=== PATIENT | male | born 1940 | race Caucasian/White ===

== ENCOUNTER 2017-12-23 14:16 | Inpatient (IN) | payer MEDICARE, OTHER ==
[2017-12-23] MEDS: HYDROCODONE/APAP (5/325) TAB PO (17:04)
[2017-12-23] MEDS: morphine 10 MG INJ IV (19:21)
[2017-12-23] MEDS ORDERED: ACETAMINOPHEN 325 MG TAB PO ×2 (20:00→21:00)
[2017-12-23 20:13] LABS: ADD MAN DIFF? NO
[2017-12-23 20:20] LABS: WHITE BLOOD COUNT 7.3 10^3/ul (4.8-10.8)
[2017-12-23 20:20] LABS: BASOPHIL # 0.1 10^3/ul (0.0-0.1); BASOPHILS % 0.7 % (0.0-2.0); EOSINOPHILS # 0.1 10^3/ul (0.0-0.5); HEMATOCRIT 38.9 % (42.0-52.0); HEMOGLOBIN 13.5 g/dl (14.0-18.0); LYMPHOCYTES # 0.9 10^3/ul (0.8-2.9); LYMPHOCYTES % 12.8 % (15.0-51.0); MEAN CORPUSCULAR HEMOGLOBIN 32.1 pg (29.0-33.0); MEAN CORPUSCULAR HGB CONC 34.7 g/dl (32.0-37.0); MEAN CORPUSCULAR VOLUME 92.6 fl (82.0-101.0); MEAN PLATELET VOLUME 9.9 fl (7.4-10.4); MONOCYTE # 0.6 10^3/ul (0.3-0.9); MONOCYTES % 8.8 % (0.0-11.0); NEUTROPHIL # 5.6 10^3/ul (1.6-7.5); NEUTROPHILS % 76.2 % (39.0-77.0); PLATELET COUNT 228 10^3/UL (140-415)
[2017-12-23 20:37] LABS: ANION GAP 22 (8-16); BLOOD UREA NITROGEN 23 mg/dl (7-20); CALCIUM 8.9 mg/dl (8.4-10.2); CARBON DIOXIDE 19 mmol/L (21-31); CHLORIDE 105 mmol/L (97-110); CREATININE 0.94 mg/dl (0.61-1.24); GLUCOSE 186 mg/dl (70-220); POTASSIUM 4.1 mmol/L (3.5-5.1); SODIUM 142 mmol/L (135-144)
[2017-12-23] MEDS ORDERED: NACL 0.9% 3 ML SYG IV (21:00)
[2017-12-23] MEDS: BISACODYL (EC) 5 MG TAB PO (22:47)
[2017-12-23] MEDS: DOCUSATE SODIUM 100 MG CAP PO (22:47)
[2017-12-23] MEDS: HYDROmorphONE 0.5 MG/0.5 ML SYG IV (22:47)
[2017-12-24] MEDS: HYDROmorphONE 0.5 MG/0.5 ML SYG IV ×6 (02:15→22:15)
[2017-12-24] MEDS ORDERED: HYDROmorphONE 0.5 MG/0.5 ML SYG IV (02:30)
[2017-12-24] MEDS: HYDROmorphONE 0.5 MG/0.5 ML SYG IM (03:32)
[2017-12-24] MEDS ORDERED: GLUCOSE GEL 15 GRAM TUBE PO ×2 (05:05)
[2017-12-24] MEDS ORDERED: GLUCAGON 1 MG INJ IM (05:05)
[2017-12-24] MEDS ORDERED: DEXTROSE 50% 50 ML SYRINGE IV ×2 (05:05)
[2017-12-24] MEDS ORDERED: GLUCOSE GEL 15 GRAM TUBE BUCCAL (05:05)
[2017-12-24 05:26] LABS: ADD MAN DIFF? NO
[2017-12-24 05:35] LABS: BASOPHIL # 0.1 10^3/ul (0.0-0.1); BASOPHILS % 0.7 % (0.0-2.0); EOSINOPHILS # 0.2 10^3/ul (0.0-0.5); EOSINOPHILS % 2.8 % (0.0-7.0); HEMATOCRIT 39.2 % (42.0-52.0); HEMOGLOBIN 13.7 g/dl (14.0-18.0); LYMPHOCYTES # 1.2 10^3/ul (0.8-2.9); LYMPHOCYTES % 17.9 % (15.0-51.0); MEAN CORPUSCULAR HEMOGLOBIN 32.4 pg (29.0-33.0); MEAN CORPUSCULAR HGB CONC 34.9 g/dl (32.0-37.0); MEAN CORPUSCULAR VOLUME 92.7 fl (82.0-101.0); MEAN PLATELET VOLUME 9.3 fl (7.4-10.4); MONOCYTE # 0.8 10^3/ul (0.3-0.9); NEUTROPHIL # 4.4 10^3/ul (1.6-7.5); NEUTROPHILS % 65.7 % (39.0-77.0); PLATELET COUNT 208 10^3/UL (140-415); RED BLOOD COUNT 4.23 10^6/ul (4.70-6.10); RED CELL DISTRIBUTION WIDTH 12.8 % (11.5-14.5)
[2017-12-24 05:35] LABS: WHITE BLOOD COUNT 6.8 10^3/ul (4.8-10.8)
[2017-12-24 06:07] LABS: ALANINE AMINOTRANSFERASE 23 IU/L (13-69); ALBUMIN/GLOBULIN RATIO 1.42; ALKALINE PHOSPHATASE 74 IU/L (42-121); ANION GAP 16 (8-16); ASPARTATE AMINO TRANSFERASE 18 IU/L (15-46); BILIRUBIN,INDIRECT 0.3 mg/dl (0-1.1); BILIRUBIN,TOTAL 0.3 mg/dl (0.2-1.3); BLOOD UREA NITROGEN 23 mg/dl (7-20); CALCIUM 9.3 mg/dl (8.4-10.2); CARBON DIOXIDE 24 mmol/L (21-31); CHLORIDE 109 mmol/L (97-110); CHOL/HDL RATIO 4.4 RATIO; CHOLESTEROL 183 mg/dl (100-200); CREATININE 0.89 mg/dl (0.61-1.24); GLUCOSE 268 mg/dl (70-220); HDL CHOLESTEROL 41 mg/dl (31-75); LDL CHOLESTEROL,CALCULATED 63 mg/dl; MAGNESIUM 1.8 mg/dl (1.7-2.5); POTASSIUM 4.3 mmol/L (3.5-5.1); SODIUM 145 mmol/L (135-144); TOTAL PROTEIN 6.8 g/dl (6.1-8.1); TRIGLYCERIDES 395 mg/dl (0-149)
[2017-12-24 06:07] LABS: HEMOGLOBIN A1C 7.3 % (0-5.9)
[2017-12-24] MEDS: INSULIN ASPART [NOVOLOG] 3 ML PEN SC ×4 (07:50→20:41)
[2017-12-24] MEDS: ONDANSETRON 4 MG INJ IV (08:36)
[2017-12-24] MEDS: LIDOCAINE 5% PATCH TD (08:42)
[2017-12-24] MEDS: LISINOPRIL 20 MG TAB PO (08:44)
[2017-12-24] MEDS: DOCUSATE SODIUM 100 MG CAP PO ×2 (08:44→20:39)
[2017-12-24] MEDS: BISACODYL (EC) 5 MG TAB PO (08:45)
[2017-12-24] MEDS: INSULIN GLARGINE [LANtus] 3 ML PEN SC (10:49)
[2017-12-24] MEDS: HYDROCODONE/APAP (10/325) TAB PO (11:35)
[2017-12-24] MEDS: TAMSULOSIN (SR) 0.4 MG CAP PO (20:39)
[2017-12-24] MEDS: ATORVASTATIN 40 MG TAB PO (20:39)
[2017-12-25] MEDS: HYDROCODONE/APAP (10/325) TAB PO ×2 (00:06→20:43)
[2017-12-25] MEDS: HYDROmorphONE 0.5 MG/0.5 ML SYG IV ×6 (01:23→23:00)
[2017-12-25] MEDS: ACCU-CHEK XX ×2 (01:49→21:35)
[2017-12-25] MEDS: ONDANSETRON 4 MG TAB PO (07:45)
[2017-12-25] MEDS: DOCUSATE SODIUM 100 MG CAP PO ×2 (08:02→20:45)
[2017-12-25] MEDS: BISACODYL (EC) 5 MG TAB PO (08:02)
[2017-12-25] MEDS: LISINOPRIL 20 MG TAB PO (08:06)
[2017-12-25] MEDS: LIDOCAINE 5% PATCH TD (08:07)
[2017-12-25] MEDS: FISH OIL 1,000 MG CAP PO ×2 (09:07→20:46)
[2017-12-25] MEDS: metFORMIN 500 MG TAB PO ×2 (09:08→18:44)
[2017-12-25] MEDS: INSULIN ASPART [NOVOLOG] 3 ML PEN SC ×7 (09:10→21:00)
[2017-12-25] MEDS: INSULIN GLARGINE [LANtus] 3 ML PEN SC (09:11)
[2017-12-25] MEDS: DIPHENHYDRAMINE 25 MG CAP PO ×3 (10:38→20:45)
[2017-12-25] MEDS: TAMSULOSIN (SR) 0.4 MG CAP PO (20:45)
[2017-12-25] MEDS: ATORVASTATIN 40 MG TAB PO (20:45)
[2017-12-26] MEDS: HYDROCODONE/APAP (10/325) TAB PO ×2 (01:07→20:48)
[2017-12-26] MEDS: DIPHENHYDRAMINE 25 MG CAP PO ×2 (01:07→20:48)
[2017-12-26] MEDS: HYDROmorphONE 0.5 MG/0.5 ML SYG IV ×5 (02:46→23:10)
[2017-12-26 05:46] LABS: ADD MAN DIFF? NO
[2017-12-26 05:50] LABS: BASOPHILS % 0.5 % (0.0-2.0); EOSINOPHILS # 0.1 10^3/ul (0.0-0.5); EOSINOPHILS % 1.5 % (0.0-7.0); HEMATOCRIT 37.4 % (42.0-52.0); HEMOGLOBIN 12.8 g/dl (14.0-18.0); LYMPHOCYTES # 1.4 10^3/ul (0.8-2.9); LYMPHOCYTES % 18.6 % (15.0-51.0); MEAN CORPUSCULAR HEMOGLOBIN 32.2 pg (29.0-33.0); MEAN CORPUSCULAR HGB CONC 34.2 g/dl (32.0-37.0); MEAN CORPUSCULAR VOLUME 94.2 fl (82.0-101.0); MEAN PLATELET VOLUME 9.4 fl (7.4-10.4); MONOCYTE # 1.1 10^3/ul (0.3-0.9); MONOCYTES % 13.9 % (0.0-11.0); NEUTROPHIL # 5.1 10^3/ul (1.6-7.5); NEUTROPHILS % 65.1 % (39.0-77.0); PLATELET COUNT 242 10^3/UL (140-415); RED BLOOD COUNT 3.97 10^6/ul (4.70-6.10); RED CELL DISTRIBUTION WIDTH 13.4 % (11.5-14.5)
[2017-12-26 05:50] LABS: WHITE BLOOD COUNT 7.8 10^3/ul (4.8-10.8)
[2017-12-26 06:03] LABS: INR 1.04; PROTIME 13.7 Sec (11.9-14.9); PT RATIO 1.1
[2017-12-26 06:04] LABS: PARTIAL THROMBOPLASTIN TIME 26.5 Sec (25.0-35.0)
[2017-12-26 06:33] LABS: ALANINE AMINOTRANSFERASE 30 IU/L (13-69); ALBUMIN 3.8 g/dl (3.3-4.9); ALKALINE PHOSPHATASE 67 IU/L (42-121); ANION GAP 15 (8-16); ASPARTATE AMINO TRANSFERASE 25 IU/L (15-46); BILIRUBIN,INDIRECT 0.4 mg/dl (0-1.1); BILIRUBIN,TOTAL 0.4 mg/dl (0.2-1.3); BLOOD UREA NITROGEN 42 mg/dl (7-20); CALCIUM 9.3 mg/dl (8.4-10.2); CARBON DIOXIDE 26 mmol/L (21-31); CHLORIDE 105 mmol/L (97-110); CREATININE 1.57 mg/dl (0.61-1.24); GLUCOSE 143 mg/dl (70-220); POTASSIUM 3.7 mmol/L (3.5-5.1); SODIUM 142 mmol/L (135-144); TOTAL PROTEIN 6.5 g/dl (6.1-8.1)
[2017-12-26] MEDS: DOCUSATE SODIUM 100 MG CAP PO ×2 (08:14→20:39)
[2017-12-26] MEDS: FISH OIL 1,000 MG CAP PO ×2 (08:14→20:39)
[2017-12-26] MEDS: BISACODYL (EC) 5 MG TAB PO (08:14)
[2017-12-26] MEDS: LISINOPRIL 20 MG TAB PO (08:15)
[2017-12-26] MEDS: LIDOCAINE 5% PATCH TD (08:16)
[2017-12-26] MEDS: INSULIN GLARGINE [LANtus] 3 ML PEN SC (08:51)
[2017-12-26] MEDS: INSULIN ASPART [NOVOLOG] 3 ML PEN SC ×8 (08:52→21:00)
[2017-12-26] MEDS: SOD CHLORIDE 0.9% 1,000 ML IV (12:37)
[2017-12-26] MEDS: BICALUTAMIDE 50 MG TAB PO (14:43)
[2017-12-26] MEDS: TAMSULOSIN (SR) 0.4 MG CAP PO (20:39)
[2017-12-26] MEDS: ATORVASTATIN 40 MG TAB PO (20:39)
[2017-12-26] MEDS: ACCU-CHEK XX (21:22)
[2017-12-27] MEDS: SOD CHLORIDE 0.9% 1,000 ML IV (01:55)
[2017-12-27 05:22] LABS: ADD MAN DIFF? NO
[2017-12-27 05:28] LABS: BASOPHILS % 0.7 % (0.0-2.0); EOSINOPHILS # 0.2 10^3/ul (0.0-0.5); EOSINOPHILS % 3.4 % (0.0-7.0); HEMATOCRIT 35.6 % (42.0-52.0); HEMOGLOBIN 12.2 g/dl (14.0-18.0); LYMPHOCYTES # 1.4 10^3/ul (0.8-2.9); LYMPHOCYTES % 23.1 % (15.0-51.0); MEAN CORPUSCULAR HEMOGLOBIN 32.3 pg (29.0-33.0); MEAN CORPUSCULAR HGB CONC 34.3 g/dl (32.0-37.0); MEAN CORPUSCULAR VOLUME 94.2 fl (82.0-101.0); MEAN PLATELET VOLUME 9.4 fl (7.4-10.4); MONOCYTES % 16.6 % (0.0-11.0); NEUTROPHIL # 3.3 10^3/ul (1.6-7.5); NEUTROPHILS % 55.9 % (39.0-77.0); PLATELET COUNT 220 10^3/UL (140-415); RED BLOOD COUNT 3.78 10^6/ul (4.70-6.10); RED CELL DISTRIBUTION WIDTH 13.6 % (11.5-14.5)
[2017-12-27 05:48] LABS: ANION GAP 14 (8-16); BLOOD UREA NITROGEN 39 mg/dl (7-20); CALCIUM 8.5 mg/dl (8.4-10.2); CARBON DIOXIDE 25 mmol/L (21-31); CHLORIDE 111 mmol/L (97-110); CREATININE 1.01 mg/dl (0.61-1.24); GLUCOSE 128 mg/dl (70-220); POTASSIUM 3.6 mmol/L (3.5-5.1); SODIUM 146 mmol/L (135-144)
[2017-12-27] MEDS: HYDROmorphONE 0.5 MG/0.5 ML SYG IV ×4 (06:02→18:48)
[2017-12-27] MEDS: FISH OIL 1,000 MG CAP PO ×2 (08:56→22:20)
[2017-12-27] MEDS: BISACODYL (EC) 5 MG TAB PO (08:56)
[2017-12-27] MEDS: DOCUSATE SODIUM 100 MG CAP PO ×2 (08:56→22:20)
[2017-12-27] MEDS: LISINOPRIL 20 MG TAB PO (08:56)
[2017-12-27] MEDS: BICALUTAMIDE 50 MG TAB PO (08:57)
[2017-12-27] MEDS: INSULIN ASPART [NOVOLOG] 3 ML PEN SC ×9 (08:58→23:53)
[2017-12-27] MEDS: INSULIN GLARGINE [LANtus] 3 ML PEN SC ×2 (08:59→10:39)
[2017-12-27] MEDS: LIDOCAINE 5% PATCH TD (09:00)
[2017-12-27] MEDS: metFORMIN 500 MG TAB PO ×2 (10:38→17:25)
[2017-12-27] MEDS: traMADol 50 MG TAB PO (13:07)
[2017-12-27] MEDS: GABAPENTIN 300 MG CAP PO (14:19)
[2017-12-27] MEDS: GABAPENTIN 100 MG CAP PO (15:13)
[2017-12-27] MEDS: DIPHENHYDRAMINE 25 MG CAP PO (15:14)
[2017-12-27] MEDS: BACLOFEN 10 MG TAB PO ×2 (15:16→22:20)
[2017-12-27] MEDS: SOD CHLORIDE 0.45% 1,000 ML IV (15:21)
[2017-12-27] MEDS: TAMSULOSIN (SR) 0.4 MG CAP PO (22:20)
[2017-12-27] MEDS: HYDROCODONE/APAP (10/325) TAB PO (22:20)
[2017-12-27] MEDS: ATORVASTATIN 40 MG TAB PO (22:20)
[2017-12-28] MEDS: GABAPENTIN 400 MG CAP PO ×3 (00:13→20:33)
[2017-12-28] MEDS: HYDROmorphONE 0.5 MG/0.5 ML SYG IV ×2 (00:14→21:59)
[2017-12-28] MEDS: ACCU-CHEK XX (02:00)
[2017-12-28] MEDS: SOD CHLORIDE 0.45% 1,000 ML IV ×2 (03:50→17:48)
[2017-12-28 05:35] LABS: ADD MAN DIFF? NO
[2017-12-28 05:42] LABS: BASOPHILS % 0.6 % (0.0-2.0); EOSINOPHILS # 0.3 10^3/ul (0.0-0.5); EOSINOPHILS % 4.9 % (0.0-7.0); HEMATOCRIT 36.1 % (42.0-52.0); HEMOGLOBIN 12.3 g/dl (14.0-18.0); LYMPHOCYTES # 1.5 10^3/ul (0.8-2.9); LYMPHOCYTES % 23.3 % (15.0-51.0); MEAN CORPUSCULAR HEMOGLOBIN 32.2 pg (29.0-33.0); MEAN CORPUSCULAR HGB CONC 34.1 g/dl (32.0-37.0); MEAN CORPUSCULAR VOLUME 94.5 fl (82.0-101.0); MEAN PLATELET VOLUME 9.2 fl (7.4-10.4); MONOCYTE # 0.9 10^3/ul (0.3-0.9); NEUTROPHIL # 3.6 10^3/ul (1.6-7.5); NEUTROPHILS % 56.9 % (39.0-77.0); PLATELET COUNT 216 10^3/UL (140-415); RED BLOOD COUNT 3.82 10^6/ul (4.70-6.10); RED CELL DISTRIBUTION WIDTH 13.4 % (11.5-14.5)
[2017-12-28 05:42] LABS: WHITE BLOOD COUNT 6.4 10^3/ul (4.8-10.8)
[2017-12-28 06:05] LABS: ANION GAP 11 (8-16); BLOOD UREA NITROGEN 19 mg/dl (7-20); CALCIUM 8.9 mg/dl (8.4-10.2); CARBON DIOXIDE 26 mmol/L (21-31); CHLORIDE 112 mmol/L (97-110); CREATININE 0.79 mg/dl (0.61-1.24); GLUCOSE 130 mg/dl (70-220); POTASSIUM 3.7 mmol/L (3.5-5.1); SODIUM 145 mmol/L (135-144)
[2017-12-28] MEDS: BACLOFEN 10 MG TAB PO (08:40)
[2017-12-28] MEDS: FISH OIL 1,000 MG CAP PO ×2 (08:40→20:33)
[2017-12-28] MEDS: metFORMIN 500 MG TAB PO (08:40)
[2017-12-28] MEDS: traMADol 50 MG TAB PO (08:40)
[2017-12-28] MEDS: BICALUTAMIDE 50 MG TAB PO (08:43)
[2017-12-28] MEDS: INSULIN ASPART [NOVOLOG] 3 ML PEN SC ×7 (08:44→20:31)
[2017-12-28] MEDS: INSULIN GLARGINE [LANtus] 3 ML PEN SC (08:44)
[2017-12-28] MEDS: LIDOCAINE 5% PATCH TD (08:46)
[2017-12-28] MEDS: BISACODYL (EC) 5 MG TAB PO (08:47)
[2017-12-28] MEDS: DOCUSATE SODIUM 100 MG CAP PO ×2 (08:47→20:32)
[2017-12-28] MEDS: LISINOPRIL 20 MG TAB PO (08:53)
[2017-12-28] MEDS: HYDROCODONE/APAP (10/325) TAB PO ×3 (10:33→20:33)
[2017-12-28] MEDS: TAMSULOSIN (SR) 0.4 MG CAP PO (20:33)
[2017-12-28] MEDS: metFORMIN (XR) 500 MG TAB PO (20:33)
[2017-12-28] MEDS: ATORVASTATIN 40 MG TAB PO (20:34)
[2017-12-29] MEDS: ACCU-CHEK XX (02:00)
[2017-12-29] MEDS: HYDROCODONE/APAP (10/325) TAB PO ×3 (04:55→17:22)
[2017-12-29 05:14] LABS: ADD MAN DIFF? NO
[2017-12-29 05:16] LABS: BASOPHILS % 0.5 % (0.0-2.0); EOSINOPHILS # 0.2 10^3/ul (0.0-0.5); EOSINOPHILS % 3.7 % (0.0-7.0); HEMATOCRIT 35.1 % (42.0-52.0); LYMPHOCYTES # 1.2 10^3/ul (0.8-2.9); LYMPHOCYTES % 22.5 % (15.0-51.0); MEAN CORPUSCULAR HEMOGLOBIN 31.8 pg (29.0-33.0); MEAN CORPUSCULAR HGB CONC 34.2 g/dl (32.0-37.0); MEAN CORPUSCULAR VOLUME 93.1 fl (82.0-101.0); MEAN PLATELET VOLUME 9.2 fl (7.4-10.4); MONOCYTE # 0.7 10^3/ul (0.3-0.9); MONOCYTES % 12.6 % (0.0-11.0); NEUTROPHIL # 3.3 10^3/ul (1.6-7.5); NEUTROPHILS % 60.3 % (39.0-77.0); PLATELET COUNT 205 10^3/UL (140-415); RED BLOOD COUNT 3.77 10^6/ul (4.70-6.10)
[2017-12-29 05:16] LABS: WHITE BLOOD COUNT 5.5 10^3/ul (4.8-10.8)
[2017-12-29 05:48] LABS: ANION GAP 15 (8-16); BLOOD UREA NITROGEN 15 mg/dl (7-20); CALCIUM 8.6 mg/dl (8.4-10.2); CARBON DIOXIDE 23 mmol/L (21-31); CHLORIDE 112 mmol/L (97-110); CREATININE 0.81 mg/dl (0.61-1.24); GLUCOSE 113 mg/dl (70-220); POTASSIUM 3.8 mmol/L (3.5-5.1); SODIUM 146 mmol/L (135-144)
[2017-12-29] MEDS: HYDROmorphONE 0.5 MG/0.5 ML SYG IV ×2 (05:48→11:21)
[2017-12-29] MEDS: SOD CHLORIDE 0.45% 1,000 ML IV (05:48)
[2017-12-29] MEDS: LIDOCAINE 5% PATCH TD (08:33)
[2017-12-29] MEDS: GABAPENTIN 400 MG CAP PO ×2 (08:37→20:46)
[2017-12-29] MEDS: BISACODYL (EC) 5 MG TAB PO (08:37)
[2017-12-29] MEDS: FISH OIL 1,000 MG CAP PO ×2 (08:37→20:45)
[2017-12-29] MEDS: DOCUSATE SODIUM 100 MG CAP PO ×2 (08:37→20:45)
[2017-12-29] MEDS: metFORMIN (XR) 500 MG TAB PO ×2 (08:37→20:49)
[2017-12-29] MEDS: BICALUTAMIDE 50 MG TAB PO (08:39)
[2017-12-29] MEDS: INSULIN GLARGINE [LANtus] 3 ML PEN SC (08:39)
[2017-12-29] MEDS: INSULIN ASPART [NOVOLOG] 3 ML PEN SC ×7 (08:40→20:52)
[2017-12-29] MEDS: LISINOPRIL 20 MG TAB PO (08:45)
[2017-12-29] MEDS: METHADONE 5 MG TAB PO ×2 (13:35→20:46)
[2017-12-29] MEDS: ONDANSETRON 4 MG TAB PO ×2 (15:12→22:09)
[2017-12-29] MEDS: traMADol 50 MG TAB PO (19:46)
[2017-12-29] MEDS: ATORVASTATIN 40 MG TAB PO (20:46)
[2017-12-29] MEDS: TAMSULOSIN (SR) 0.4 MG CAP PO (20:46)
[2017-12-30] MEDS: HYDROCODONE/APAP (10/325) TAB PO ×4 (01:36→18:01)
[2017-12-30] MEDS: ACCU-CHEK XX ×2 (02:00→23:06)
[2017-12-30 05:15] LABS: ADD MAN DIFF? NO
[2017-12-30 05:24] LABS: WHITE BLOOD COUNT 6.5 10^3/ul (4.8-10.8)
[2017-12-30 05:24] LABS: BASOPHIL # 0.1 10^3/ul (0.0-0.1); BASOPHILS % 0.8 % (0.0-2.0); EOSINOPHILS # 0.2 10^3/ul (0.0-0.5); EOSINOPHILS % 2.3 % (0.0-7.0); HEMATOCRIT 33.5 % (42.0-52.0); HEMOGLOBIN 11.5 g/dl (14.0-18.0); LYMPHOCYTES # 1.2 10^3/ul (0.8-2.9); LYMPHOCYTES % 18.5 % (15.0-51.0); MEAN CORPUSCULAR HEMOGLOBIN 31.9 pg (29.0-33.0); MEAN CORPUSCULAR HGB CONC 34.3 g/dl (32.0-37.0); MEAN CORPUSCULAR VOLUME 93.1 fl (82.0-101.0); MEAN PLATELET VOLUME 9.1 fl (7.4-10.4); MONOCYTE # 0.7 10^3/ul (0.3-0.9); MONOCYTES % 11.2 % (0.0-11.0); NEUTROPHIL # 4.4 10^3/ul (1.6-7.5); NEUTROPHILS % 66.6 % (39.0-77.0); PLATELET COUNT 226 10^3/UL (140-415); RED CELL DISTRIBUTION WIDTH 13.2 % (11.5-14.5)
[2017-12-30 05:39] LABS: ANION GAP 13 (8-16); BLOOD UREA NITROGEN 13 mg/dl (7-20); CALCIUM 8.9 mg/dl (8.4-10.2); CARBON DIOXIDE 27 mmol/L (21-31); CHLORIDE 108 mmol/L (97-110); CREATININE 0.74 mg/dl (0.61-1.24); GLUCOSE 104 mg/dl (70-220); SODIUM 144 mmol/L (135-144)
[2017-12-30] MEDS: METHADONE 5 MG TAB PO ×3 (05:53→21:30)
[2017-12-30] MEDS: SOD CHLORIDE 0.45% 1,000 ML IV ×3 (06:11→22:26)
[2017-12-30] MEDS: INSULIN ASPART [NOVOLOG] 3 ML PEN SC ×7 (07:50→20:58)
[2017-12-30] MEDS: BISACODYL (EC) 5 MG TAB PO (09:22)
[2017-12-30] MEDS: DOCUSATE SODIUM 100 MG CAP PO ×2 (09:23→20:57)
[2017-12-30] MEDS: FISH OIL 1,000 MG CAP PO ×2 (09:23→20:57)
[2017-12-30] MEDS: metFORMIN (XR) 500 MG TAB PO ×2 (09:24→20:58)
[2017-12-30] MEDS: LIDOCAINE 5% PATCH TD (09:26)
[2017-12-30] MEDS: LISINOPRIL 20 MG TAB PO (09:27)
[2017-12-30] MEDS: GABAPENTIN 400 MG CAP PO ×2 (09:27→20:58)
[2017-12-30] MEDS: BICALUTAMIDE 50 MG TAB PO (09:34)
[2017-12-30] MEDS: INSULIN GLARGINE [LANtus] 3 ML PEN SC (10:07)
[2017-12-30] MEDS: ONDANSETRON 4 MG TAB PO (10:10)
[2017-12-30] MEDS: ATORVASTATIN 40 MG TAB PO (20:58)
[2017-12-30] MEDS: TAMSULOSIN (SR) 0.4 MG CAP PO (20:58)
[2017-12-30] MEDS: DIPHENHYDRAMINE 25 MG CAP PO (22:26)
[2017-12-31] MEDS: METHADONE 5 MG TAB PO ×3 (04:57→21:12)
[2017-12-31 05:49] LABS: ADD MAN DIFF? NO
[2017-12-31 05:57] LABS: BASOPHIL # 0.1 10^3/ul (0.0-0.1); BASOPHILS % 0.8 % (0.0-2.0); EOSINOPHILS # 0.2 10^3/ul (0.0-0.5); EOSINOPHILS % 3.2 % (0.0-7.0); HEMATOCRIT 35.5 % (42.0-52.0); HEMOGLOBIN 12.2 g/dl (14.0-18.0); LYMPHOCYTES # 1.6 10^3/ul (0.8-2.9); LYMPHOCYTES % 24.5 % (15.0-51.0); MEAN CORPUSCULAR HEMOGLOBIN 32.3 pg (29.0-33.0); MEAN CORPUSCULAR HGB CONC 34.4 g/dl (32.0-37.0); MEAN CORPUSCULAR VOLUME 93.9 fl (82.0-101.0); MEAN PLATELET VOLUME 9.3 fl (7.4-10.4); MONOCYTE # 0.8 10^3/ul (0.3-0.9); MONOCYTES % 12.7 % (0.0-11.0); NEUTROPHIL # 3.7 10^3/ul (1.6-7.5); NEUTROPHILS % 58.3 % (39.0-77.0); PLATELET COUNT 229 10^3/UL (140-415); RED BLOOD COUNT 3.78 10^6/ul (4.70-6.10); RED CELL DISTRIBUTION WIDTH 13.1 % (11.5-14.5)
[2017-12-31 05:57] LABS: WHITE BLOOD COUNT 6.3 10^3/ul (4.8-10.8)
[2017-12-31 06:12] LABS: ANION GAP 12 (8-16); BLOOD UREA NITROGEN 11 mg/dl (7-20); CALCIUM 8.8 mg/dl (8.4-10.2); CARBON DIOXIDE 28 mmol/L (21-31); CHLORIDE 109 mmol/L (97-110); GLUCOSE 71 mg/dl (70-220); POTASSIUM 3.7 mmol/L (3.5-5.1); SODIUM 145 mmol/L (135-144)
[2017-12-31] MEDS: INSULIN ASPART [NOVOLOG] 3 ML PEN SC ×7 (07:50→21:00)
[2017-12-31] MEDS: DOCUSATE SODIUM 100 MG CAP PO ×2 (09:00→21:11)
[2017-12-31] MEDS: BISACODYL (EC) 5 MG TAB PO (09:00)
[2017-12-31] MEDS: INSULIN GLARGINE [LANtus] 3 ML PEN SC (09:50)
[2017-12-31] MEDS: BICALUTAMIDE 50 MG TAB PO (09:51)
[2017-12-31] MEDS: LIDOCAINE 5% PATCH TD (09:53)
[2017-12-31] MEDS: FISH OIL 1,000 MG CAP PO ×2 (09:53→21:12)
[2017-12-31] MEDS: SOD CHLORIDE 0.45% 1,000 ML IV (09:53)
[2017-12-31] MEDS: metFORMIN (XR) 500 MG TAB PO ×2 (09:54→21:12)
[2017-12-31] MEDS: GABAPENTIN 400 MG CAP PO ×2 (09:55→21:11)
[2017-12-31] MEDS: LISINOPRIL 20 MG TAB PO (09:55)
[2017-12-31] MEDS: HYDROCODONE/APAP (10/325) TAB PO ×3 (10:34→19:52)
[2017-12-31] MEDS: DIPHENHYDRAMINE 25 MG CAP PO (16:34)
[2017-12-31] MEDS: ATORVASTATIN 40 MG TAB PO (21:11)
[2017-12-31] MEDS: TAMSULOSIN (SR) 0.4 MG CAP PO (21:11)
[2017-12-31] MEDS: ACCU-CHEK XX (23:29)
[2018-01-01] MEDS: HYDROCODONE/APAP (10/325) TAB PO ×4 (00:07→21:01)
[2018-01-01] MEDS: SOD CHLORIDE 0.45% 1,000 ML IV ×3 (01:10→18:06)
[2018-01-01] MEDS: METHADONE 5 MG TAB PO ×3 (04:58→22:03)
[2018-01-01 06:31] LABS: ANION GAP 14 (8-16); BLOOD UREA NITROGEN 16 mg/dl (7-20); CALCIUM 8.6 mg/dl (8.4-10.2); CARBON DIOXIDE 27 mmol/L (21-31); CHLORIDE 108 mmol/L (97-110); CREATININE 0.79 mg/dl (0.61-1.24); GLUCOSE 106 mg/dl (70-220); POTASSIUM 3.8 mmol/L (3.5-5.1); SODIUM 145 mmol/L (135-144)
[2018-01-01] MEDS: INSULIN ASPART [NOVOLOG] 3 ML PEN SC ×7 (08:30→21:00)
[2018-01-01] MEDS: INSULIN GLARGINE [LANtus] 3 ML PEN SC (09:35)
[2018-01-01] MEDS: BICALUTAMIDE 50 MG TAB PO (09:37)
[2018-01-01] MEDS: GABAPENTIN 400 MG CAP PO ×2 (09:38→21:01)
[2018-01-01] MEDS: FISH OIL 1,000 MG CAP PO ×2 (09:38→21:00)
[2018-01-01] MEDS: LISINOPRIL 20 MG TAB PO (09:38)
[2018-01-01] MEDS: BISACODYL (EC) 5 MG TAB PO (09:38)
[2018-01-01] MEDS: DOCUSATE SODIUM 100 MG CAP PO ×2 (09:38→21:01)
[2018-01-01] MEDS: metFORMIN (XR) 500 MG TAB PO ×2 (09:38→21:01)
[2018-01-01] MEDS: LIDOCAINE 5% PATCH TD (09:39)
[2018-01-01] MEDS: DIPHENHYDRAMINE 25 MG CAP PO ×2 (13:14→21:01)
[2018-01-01] MEDS: TAMSULOSIN (SR) 0.4 MG CAP PO (21:00)
[2018-01-01] MEDS: ATORVASTATIN 40 MG TAB PO (21:01)
[2018-01-02] MEDS: ACCU-CHEK XX (02:00)
[2018-01-02] MEDS: HYDROCODONE/APAP (10/325) TAB PO ×3 (02:17→14:55)
[2018-01-02] MEDS: METHADONE 5 MG TAB PO ×2 (05:34→13:26)
[2018-01-02] MEDS: GUAIFENESIN/DM 5ML CUP PO ×2 (06:12→12:29)
[2018-01-02] MEDS: DIPHENHYDRAMINE 25 MG CAP PO (06:16)
[2018-01-02] MEDS: SOD CHLORIDE 0.45% 1,000 ML IV (06:42)
[2018-01-02] MEDS: INSULIN ASPART [NOVOLOG] 3 ML PEN SC ×5 (08:35→13:27)
[2018-01-02] MEDS: INSULIN GLARGINE [LANtus] 3 ML PEN SC (09:07)
[2018-01-02] MEDS: GABAPENTIN 400 MG CAP PO (09:08)
[2018-01-02] MEDS: BISACODYL (EC) 5 MG TAB PO (09:08)
[2018-01-02] MEDS: DOCUSATE SODIUM 100 MG CAP PO (09:08)
[2018-01-02] MEDS: LISINOPRIL 20 MG TAB PO (09:08)
[2018-01-02] MEDS: FISH OIL 1,000 MG CAP PO (09:08)
[2018-01-02] MEDS: BICALUTAMIDE 50 MG TAB PO (09:08)
[2018-01-02] MEDS: metFORMIN (XR) 500 MG TAB PO (09:09)
[2018-01-02] MEDS: LIDOCAINE 5% PATCH TD (09:09)
== END 2018-01-02 15:30 | disposition home health service (06) | DRG 552 ==
LOC: MS1 19:58 → E/R 14:16
PROVIDERS: Family Medicine
DX: S32.019A Unspecified fracture of first lumbar vertebra, initial encounter for closed fracture (principal); N17.9 Acute kidney failure, unspecified; E11.65 Type 2 diabetes mellitus with hyperglycemia; E11.42 Type 2 diabetes mellitus with diabetic polyneuropathy; C61 Malignant neoplasm of prostate; M54.42 Lumbago with sciatica, left side; M54.41 Lumbago with sciatica, right side; I10 Essential (primary) hypertension; E78.5 Hyperlipidemia, unspecified; N40.0 Benign prostatic hyperplasia without lower urinary tract symptoms; M54.16 Radiculopathy, lumbar region; I25.10 Atherosclerotic heart disease of native coronary artery without angina pectoris; F17.290 Nicotine dependence, other tobacco product, uncomplicated; L29.9 Pruritus, unspecified; E66.9 Obesity, unspecified; Z68.32 Body mass index [BMI] 32.0-32.9, adult; W18.39XA Other fall on same level, initial encounter; Y93.89 Activity, other specified; Y92.019 Unspecified place in single-family (private) house as the place of occurrence of the external cause; Y99.8 Other external cause status; Z79.4 Long term (current) use of insulin; Z91.81 History of falling; Z95.1 Presence of aortocoronary bypass graft
CPT/HCPCS: 71045; 72131; 72148; 72170; 80048; 80053; 80061; 82962; 83036; 83735; 84443; 85025; 85610; 85730; 87075; 96374; 96375; 97116; 97162; 97530; 99285-25

== ENCOUNTER 2018-03-18 08:06 | Inpatient (IN) | payer MEDICARE, OTHER ==
[2018-03-18] MEDS: LIDOCAINE 1%/EPI 30 ML INJ (11:52)
[2018-03-18] MEDS: BUPIVACAINE 0.5% (SDV) 30 ML INJ (11:52)
[2018-03-18] MEDS: THROMBIN 5000 UNIT VIAL ×2 (11:54→11:56)
[2018-03-18] MEDS: GELATIN SIZE 100 SPONGE (11:54)
[2018-03-18] MEDS: POLYMYXIN/BACITRACIN 1L IRRIG (11:54)
[2018-03-18] MEDS: THROMBIN 5000 UNIT VIAL TOP (11:56)
[2018-03-18] MEDS ORDERED: NEOSTIGMINE 3 MG/3 ML SYRINGE ×2 (12:26→16:56)
[2018-03-18] MEDS ORDERED: SUCCINYLCHOLINE CHLORIDE 100 MG/5 ML SYG IV (12:26)
[2018-03-18] MEDS ORDERED: GLYCOPYRROLATE 0.4 MG INJ ×3 (12:26→16:56)
[2018-03-18] MEDS ORDERED: ROCURONIUM 50 MG INJ ×2 (12:26→16:56)
[2018-03-18] MEDS ORDERED: LIDOCAINE 2% (SDV) 5 ML INJ (12:26)
[2018-03-18] MEDS ORDERED: PROPOFOL 20 ML (12:26)
[2018-03-18] MEDS ORDERED: THROMBIN 5000 UNIT VIAL (14:07)
[2018-03-18] MEDS ORDERED: CEFAZOLIN 1 GM INJ (16:56)
[2018-03-18] MEDS ORDERED: FENTAnyl 50 MCG/ML VIAL ×3 (17:33→19:02)
[2018-03-18] MEDS ORDERED: HYDROmorphONE 1 MG/5 ML IV SYRINGE IV ×2 (17:46→18:00)
[2018-03-18] MEDS ORDERED: LABETALOL HCL 20MG INJ IV (18:00)
[2018-03-18] MEDS ORDERED: EPHEDrine SULFATE 50 MG/5 ML SYG IV (18:00)
[2018-03-18] MEDS ORDERED: DIPHENHYDRAMINE 50 MG INJ IV (18:00)
[2018-03-18] MEDS ORDERED: MEPERIDINE 25 MG INJ IV (18:00)
[2018-03-18] MEDS ORDERED: FENTAnyl 50 MCG/ML VIAL IV (18:00)
[2018-03-18] MEDS ORDERED: BISACODYL 10 MG SUPP PR (18:00)
[2018-03-18] MEDS ORDERED: METOCLOPRAMIDE 10 MG INJ IV (18:00)
[2018-03-18] MEDS ORDERED: NALOXONE (0.4 MG/ML) INJ IV (18:00)
[2018-03-18] MEDS ORDERED: CYCLOBENZAPRINE 10 MG TAB PO (18:00)
[2018-03-18] MEDS ORDERED: traMADol 50 MG TAB PO (18:00)
[2018-03-18] MEDS ORDERED: LIDOCAINE 5% PATCH TD (18:00)
[2018-03-18] MEDS ORDERED: ONDANSETRON 4 MG INJ IV (18:00)
[2018-03-18] MEDS ORDERED: hydrALAzine 20 MG INJ IV (18:00)
[2018-03-18] MEDS ORDERED: MIDAZOLAM 1 MG/ML 2 ML INJ IV (18:00)
[2018-03-18] MEDS: CEFAZOLIN 1 GM/50 ML (PMX) 50 ML IVPB (18:07)
[2018-03-18] MEDS: HYDROmorphONE 1 MG/5 ML IV SYRINGE IV ×2 (18:10→18:18)
[2018-03-18 18:33] LABS: ADD UMIC YES; UR ASCORBIC ACID NEGATIVE (NEGATIVE); UR BACTERIA FEW /HPF (NONE SEEN); UR BILIRUBIN (Dip) NEGATIVE (NEGATIVE); UR BLOOD (Dip) 1+ mg/dL (NEGATIVE); UR CLARITY CLOUDY (CLEAR); UR COLOR AMBER (YELLOW); UR GLUCOSE (Dip) 1+ mg/dL (NEGATIVE); UR KETONES (Dip) TRACE mg/dL (NEGATIVE); UR LEUKOCYTE ESTERASE (Dip) NEGATIVE Leu/ul (NEGATIVE); UR MUCUS FEW /HPF (NONE SEEN); UR NITRITE (Dip) NEGATIVE (NEGATIVE); UR RBC 4 /HPF (0-5); UR SPECIFIC GRAVITY (Dip) 1.023 (1.003-1.030); UR TOTAL PROTEIN (Dip) 2+ mg/dl (NEGATIVE); UR UROBILINOGEN (Dip) 1+ mg/dL (NEGATIVE); UR WBC 12 /HPF (0-5)
[2018-03-18] MEDS: FENTAnyl 50 MCG/ML VIAL IV ×2 (18:46→19:20)
[2018-03-18] MEDS ORDERED: HYDROmorphONE 0.2 MG/ML PCA IV (19:30)
[2018-03-18] MEDS: ONDANSETRON 4 MG INJ IV (19:47)
[2018-03-18] MEDS: HYDROCODONE/APAP (10/325) TAB PO (19:49)
[2018-03-18] MEDS: HYDROmorphONE 0.2 MG/ML PCA IV (19:50)
[2018-03-18] MEDS: ATORVASTATIN 40 MG TAB PO (22:50)
[2018-03-18] MEDS: GABAPENTIN 400 MG CAP PO (22:50)
[2018-03-18] MEDS: DOCUSATE SODIUM 100 MG CAP PO (22:50)
[2018-03-18] MEDS: TAMSULOSIN (SR) 0.4 MG CAP PO (22:50)
[2018-03-18] MEDS: metFORMIN 500 MG TAB PO (23:00)
[2018-03-18] MEDS: METHADONE 5 MG TAB PO (23:01)
[2018-03-18] MEDS: LISINOPRIL 20 MG TAB PO (23:01)
[2018-03-18] MEDS: 1/2 NS + KCL 20 MEQ 1,000 ML IV (23:02)
[2018-03-18] MEDS: INSULIN ASPART [NOVOLOG] 3 ML PEN SC (23:29)
[2018-03-18] MEDS: INSULIN GLARGINE [LANTus] (100 UNITS/ML) SYG SC (23:30)
[2018-03-19] MEDS: METHADONE 5 MG TAB PO ×3 (02:00→17:00)
[2018-03-19] MEDS: CEFAZOLIN 1 GM/50 ML (PMX) 50 ML IVPB ×2 (02:13→09:31)
[2018-03-19] MEDS: BICALUTAMIDE 50 MG TAB PO ×2 (03:01→08:10)
[2018-03-19] MEDS: 1/2 NS + KCL 20 MEQ 1,000 ML IV ×3 (03:04→13:31)
[2018-03-19 06:12] LABS: ADD MAN DIFF? NO
[2018-03-19 06:21] LABS: WHITE BLOOD COUNT 10.2 10^3/ul (4.8-10.8)
[2018-03-19 06:21] LABS: BASOPHILS % 0.2 % (0.0-2.0); EOSINOPHILS % 0.1 % (0.0-7.0); HEMATOCRIT 31.4 % (42.0-52.0); HEMOGLOBIN 10.8 g/dl (14.0-18.0); IMMATURE GRANS #M 0.04 10^3/ul; IMMATURE GRANS % (M) 0.4 %; LYMPHOCYTES # 0.8 10^3/ul (0.8-2.9); LYMPHOCYTES % 8.2 % (15.0-51.0); MEAN CORPUSCULAR HEMOGLOBIN 31.8 pg (29.0-33.0); MEAN CORPUSCULAR HGB CONC 34.4 g/dl (32.0-37.0); MEAN CORPUSCULAR VOLUME 92.4 fl (82.0-101.0); MEAN PLATELET VOLUME 9.2 fl (7.4-10.4); MONOCYTE # 1.3 10^3/ul (0.3-0.9); MONOCYTES % 13.2 % (0.0-11.0); NEUTROPHIL # 7.9 10^3/ul (1.6-7.5); NEUTROPHILS % 77.9 % (39.0-77.0); PLATELET COUNT 185 10^3/UL (140-415); RED CELL DISTRIBUTION WIDTH 13.6 % (11.5-14.5)
[2018-03-19 06:38] LABS: ANION GAP 12 (8-16); BLOOD UREA NITROGEN 24 mg/dl (7-20); CALCIUM 7.9 mg/dl (8.4-10.2); CARBON DIOXIDE 25 mmol/L (21-31); CHLORIDE 105 mmol/L (97-110); CREATININE 1.05 mg/dl (0.61-1.24); GLUCOSE 174 mg/dl (70-220); POTASSIUM 4.1 mmol/L (3.5-5.1); SODIUM 138 mmol/L (135-144)
[2018-03-19] MEDS: HYDROCODONE/APAP (10/325) TAB PO ×3 (06:48→22:53)
[2018-03-19] MEDS: GABAPENTIN 400 MG CAP PO ×2 (08:04→20:42)
[2018-03-19] MEDS: LISINOPRIL 20 MG TAB PO (08:05)
[2018-03-19] MEDS: DOCUSATE SODIUM 100 MG CAP PO ×2 (08:05→21:00)
[2018-03-19] MEDS: INSULIN ASPART [NOVOLOG] 3 ML PEN SC ×4 (08:10→21:22)
[2018-03-19] MEDS: traMADol 50 MG TAB PO ×3 (12:06→20:42)
[2018-03-19] MEDS: metFORMIN 500 MG TAB PO ×2 (12:10→17:05)
[2018-03-19] MEDS: HYDROmorphONE 0.5 MG/0.5 ML SYG IV ×3 (15:03→22:53)
[2018-03-19] MEDS: LORAZEPAM 2 MG INJ IV ×2 (15:37→21:17)
[2018-03-19] MEDS ORDERED: HYDROCODONE/APAP (10/325) TAB PO (18:00)
[2018-03-19] MEDS: TAMSULOSIN (SR) 0.4 MG CAP PO (20:42)
[2018-03-19] MEDS: ATORVASTATIN 40 MG TAB PO (21:00)
[2018-03-19] MEDS: INSULIN GLARGINE [LANTus] (100 UNITS/ML) SYG SC (21:04)
[2018-03-20] MEDS: METHADONE 5 MG TAB PO ×2 (01:46→09:51)
[2018-03-20] MEDS: traMADol 50 MG TAB PO ×4 (01:46→13:00)
[2018-03-20] MEDS: LORAZEPAM 1 MG TAB PO (04:11)
[2018-03-20] MEDS: LORAZEPAM 2 MG INJ IV ×3 (05:36→12:30)
[2018-03-20] MEDS: HYDROmorphONE 0.5 MG/0.5 ML SYG IV ×3 (05:37→12:40)
[2018-03-20 09:40] LABS: ADD MAN DIFF? NO
[2018-03-20 09:42] LABS: BASOPHILS % 0.2 % (0.0-2.0); EOSINOPHILS % 0.3 % (0.0-7.0); HEMATOCRIT 26.6 % (42.0-52.0); HEMOGLOBIN 8.8 g/dl (14.0-18.0); IMMATURE GRANS #M 0.04 10^3/ul; IMMATURE GRANS % (M) 0.4 %; LYMPHOCYTES # 0.6 10^3/ul (0.8-2.9); MEAN CORPUSCULAR HEMOGLOBIN 31.2 pg (29.0-33.0); MEAN CORPUSCULAR HGB CONC 33.1 g/dl (32.0-37.0); MEAN CORPUSCULAR VOLUME 94.3 fl (82.0-101.0); MEAN PLATELET VOLUME 9.6 fl (7.4-10.4); MONOCYTE # 1.2 10^3/ul (0.3-0.9); MONOCYTES % 11.7 % (0.0-11.0); NEUTROPHIL # 8.1 10^3/ul (1.6-7.5); NEUTROPHILS % 81.4 % (39.0-77.0); PLATELET COUNT 128 10^3/UL (140-415); RED BLOOD COUNT 2.82 10^6/ul (4.70-6.10); RED CELL DISTRIBUTION WIDTH 13.8 % (11.5-14.5)
[2018-03-20] MEDS: BICALUTAMIDE 50 MG TAB PO (09:49)
[2018-03-20] MEDS: GABAPENTIN 400 MG CAP PO ×2 (09:50→21:00)
[2018-03-20] MEDS: DOCUSATE SODIUM 100 MG CAP PO ×2 (09:50→21:00)
[2018-03-20] MEDS: 1/2 NS + KCL 20 MEQ 1,000 ML IV (09:51)
[2018-03-20] MEDS: LISINOPRIL 20 MG TAB PO (09:51)
[2018-03-20 10:16] LABS: ANION GAP 11 (8-16); BLOOD UREA NITROGEN 17 mg/dl (7-20); CARBON DIOXIDE 26 mmol/L (21-31); CHLORIDE 107 mmol/L (97-110); CREATININE 0.83 mg/dl (0.61-1.24); GLUCOSE 154 mg/dl (70-220); MAGNESIUM 1.8 mg/dl (1.7-2.5); POTASSIUM 3.9 mmol/L (3.5-5.1); SODIUM 140 mmol/L (135-144)
[2018-03-20] MEDS: INSULIN ASPART [NOVOLOG] 3 ML PEN SC ×3 (13:26→18:00)
[2018-03-20] MEDS: metFORMIN 500 MG TAB PO ×2 (13:26→17:09)
[2018-03-20] MEDS: DIPHENHYDRAMINE 50 MG INJ IV (14:51)
[2018-03-20] MEDS: OLANZAPINE 10 MG VIAL IM (14:54)
[2018-03-20] MEDS: HYDROmorphONE 0.2 MG/ML PCA IV (15:19)
[2018-03-20] MEDS ORDERED: OLANZAPINE 10 MG VIAL IM (17:30)
[2018-03-20] MEDS ORDERED: GLUCAGON 1 MG INJ IM (18:00)
[2018-03-20] MEDS ORDERED: DEXTROSE 50% 50 ML SYRINGE IV ×2 (18:00)
[2018-03-20] MEDS ORDERED: GLUCOSE GEL 15 GRAM TUBE PO ×2 (18:00)
[2018-03-20] MEDS ORDERED: GLUCOSE GEL 15 GRAM TUBE BUCCAL (18:00)
[2018-03-20] MEDS: D5W-0.45 NACL + KCL 20 MEQ 1,000 ML IV (18:45)
[2018-03-20] MEDS: INSULIN GLARGINE [LANTus] (100 UNITS/ML) SYG SC (20:39)
[2018-03-20] MEDS: ATORVASTATIN 40 MG TAB PO (21:00)
[2018-03-20] MEDS: TAMSULOSIN (SR) 0.4 MG CAP PO (21:00)
[2018-03-21] MEDS: DIPHENHYDRAMINE 50 MG INJ IV ×4 (00:26→17:53)
[2018-03-21] MEDS: INSULIN ASPART [NOVOLOG] 3 ML PEN SC ×5 (00:33→23:46)
[2018-03-21] MEDS: LORAZEPAM 2 MG INJ IV ×2 (02:46→21:13)
[2018-03-21 05:59] LABS: ADD MAN DIFF? NO
[2018-03-21 06:07] LABS: BASOPHILS % 0.3 % (0.0-2.0); EOSINOPHILS # 0.1 10^3/ul (0.0-0.5); EOSINOPHILS % 0.9 % (0.0-7.0); HEMATOCRIT 27.4 % (42.0-52.0); IMMATURE GRANS #M 0.04 10^3/ul; IMMATURE GRANS % (M) 0.4 %; LYMPHOCYTES # 0.7 10^3/ul (0.8-2.9); LYMPHOCYTES % 7.4 % (15.0-51.0); MEAN CORPUSCULAR HEMOGLOBIN 31.1 pg (29.0-33.0); MEAN CORPUSCULAR HGB CONC 32.8 g/dl (32.0-37.0); MEAN CORPUSCULAR VOLUME 94.8 fl (82.0-101.0); MEAN PLATELET VOLUME 9.8 fl (7.4-10.4); MONOCYTE # 1.3 10^3/ul (0.3-0.9); NEUTROPHIL # 7.2 10^3/ul (1.6-7.5); PLATELET COUNT 123 10^3/UL (140-415); RED BLOOD COUNT 2.89 10^6/ul (4.70-6.10); RED CELL DISTRIBUTION WIDTH 13.7 % (11.5-14.5)
[2018-03-21 06:07] LABS: WHITE BLOOD COUNT 9.3 10^3/ul (4.8-10.8)
[2018-03-21 06:49] LABS: ANION GAP 11 (8-16); BLOOD UREA NITROGEN 17 mg/dl (7-20); CARBON DIOXIDE 26 mmol/L (21-31); CHLORIDE 108 mmol/L (97-110); CREATININE 0.84 mg/dl (0.61-1.24); GLUCOSE 139 mg/dl (70-220); MAGNESIUM 1.9 mg/dl (1.7-2.5); POTASSIUM 3.8 mmol/L (3.5-5.1); SODIUM 141 mmol/L (135-144)
[2018-03-21] MEDS: D5W-0.45 NACL + KCL 20 MEQ 1,000 ML IV ×2 (06:50→21:18)
[2018-03-21] MEDS: OLANZAPINE 10 MG VIAL IM ×2 (08:09→11:38)
[2018-03-21] MEDS: BICALUTAMIDE 50 MG TAB PO (08:32)
[2018-03-21] MEDS: GABAPENTIN 400 MG CAP PO ×2 (08:33→21:00)
[2018-03-21] MEDS: LISINOPRIL 20 MG TAB PO (08:33)
[2018-03-21] MEDS: DOCUSATE SODIUM 100 MG CAP PO ×2 (08:33→21:00)
[2018-03-21] MEDS: metFORMIN 500 MG TAB PO ×2 (11:04→17:11)
[2018-03-21] MEDS ORDERED: LORAZEPAM 0.5 MG TAB PO (11:30)
[2018-03-21] MEDS: HYDROmorphONE 0.2 MG/ML PCA IV (19:54)
[2018-03-21] MEDS: ATORVASTATIN 40 MG TAB PO (21:00)
[2018-03-21] MEDS: TAMSULOSIN (SR) 0.4 MG CAP PO (21:00)
[2018-03-21] MEDS: INSULIN GLARGINE [LANTus] (100 UNITS/ML) SYG SC (21:17)
[2018-03-22] MEDS: LORAZEPAM 2 MG INJ IV ×5 (00:20→23:25)
[2018-03-22] MEDS: DIPHENHYDRAMINE 50 MG INJ IV ×4 (01:19→21:15)
[2018-03-22 05:50] LABS: ADD MAN DIFF? NO
[2018-03-22] MEDS: INSULIN ASPART [NOVOLOG] 3 ML PEN SC ×4 (06:00→21:07)
[2018-03-22 06:03] LABS: WHITE BLOOD COUNT 8.4 10^3/ul (4.8-10.8)
[2018-03-22 06:03] LABS: ABNORMAL IP MESSAGE 1; BASOPHILS % 0.4 % (0.0-2.0); EOSINOPHILS % 0.5 % (0.0-7.0); HEMATOCRIT 27.7 % (42.0-52.0); HEMOGLOBIN 9.2 g/dl (14.0-18.0); IMMATURE GRANS #M 0.02 10^3/ul; IMMATURE GRANS % (M) 0.2 %; LYMPHOCYTES # 0.7 10^3/ul (0.8-2.9); LYMPHOCYTES % 7.8 % (15.0-51.0); MEAN CORPUSCULAR HEMOGLOBIN 31.3 pg (29.0-33.0); MEAN CORPUSCULAR HGB CONC 33.2 g/dl (32.0-37.0); MEAN CORPUSCULAR VOLUME 94.2 fl (82.0-101.0); MEAN PLATELET VOLUME 9.7 fl (7.4-10.4); MONOCYTE # 1.6 10^3/ul (0.3-0.9); MONOCYTES % 18.8 % (0.0-11.0); NEUTROPHIL # 6.1 10^3/ul (1.6-7.5); NEUTROPHILS % 72.3 % (39.0-77.0); PLATELET COUNT 157 10^3/UL (140-415); POSITIVE DIFF @See below; RED BLOOD COUNT 2.94 10^6/ul (4.70-6.10); RED CELL DISTRIBUTION WIDTH 13.2 % (11.5-14.5)
[2018-03-22 06:36] LABS: ANION GAP 11 (8-16); BLOOD UREA NITROGEN 12 mg/dl (7-20); CALCIUM 8.3 mg/dl (8.4-10.2); CARBON DIOXIDE 27 mmol/L (21-31); CHLORIDE 107 mmol/L (97-110); CREATININE 0.66 mg/dl (0.61-1.24); GLUCOSE 112 mg/dl (70-220); POTASSIUM 3.6 mmol/L (3.5-5.1); SODIUM 141 mmol/L (135-144)
[2018-03-22] MEDS: BICALUTAMIDE 50 MG TAB PO (08:05)
[2018-03-22] MEDS: DOCUSATE SODIUM 100 MG CAP PO ×2 (08:06→21:00)
[2018-03-22] MEDS: GABAPENTIN 400 MG CAP PO ×2 (08:06→21:00)
[2018-03-22] MEDS: OLANZAPINE 10 MG VIAL IM (08:14)
[2018-03-22] MEDS: LISINOPRIL 20 MG TAB PO (09:00)
[2018-03-22] MEDS: D5W-0.45 NACL + KCL 20 MEQ 1,000 ML IV (09:30)
[2018-03-22] MEDS: metFORMIN 500 MG TAB PO (12:00)
[2018-03-22] MEDS ORDERED: VANCOMYCIN 1.5 GM in SOD CHLORIDE 0.9% 250 ML IVPB (14:00)
[2018-03-22] MEDS: CEFTRIAXONE 1 GM/50 ML (PMX) 50 ML IVPB (15:41)
[2018-03-22] MEDS: VANCOMYCIN 1.5 GM in SOD CHLORIDE 0.9% 250 ML IVPB (20:59)
[2018-03-22] MEDS: TAMSULOSIN (SR) 0.4 MG CAP PO (21:00)
[2018-03-22] MEDS: ATORVASTATIN 40 MG TAB PO (21:00)
[2018-03-22] MEDS: INSULIN GLARGINE [LANTus] (100 UNITS/ML) SYG SC (21:07)
[2018-03-22 23:22] LABS: ADD UMIC YES; UR ASCORBIC ACID NEGATIVE (NEGATIVE); UR BILIRUBIN (Dip) NEGATIVE (NEGATIVE); UR BLOOD (Dip) 1+ mg/dL (NEGATIVE); UR CLARITY CLEAR (CLEAR); UR COLOR YELLOW (YELLOW); UR GLUCOSE (Dip) NEGATIVE (NEGATIVE); UR KETONES (Dip) TRACE mg/dL (NEGATIVE); UR LEUKOCYTE ESTERASE (Dip) NEGATIVE Leu/ul (NEGATIVE); UR NITRITE (Dip) NEGATIVE (NEGATIVE); UR RBC 0 /HPF (0-5); UR SPECIFIC GRAVITY (Dip) 1.015 (1.003-1.030); UR TOTAL PROTEIN (Dip) 1+ mg/dl (NEGATIVE); UR UROBILINOGEN (Dip) NEGATIVE (NEGATIVE); UR WBC 1 /HPF (0-5)
[2018-03-23] MEDS: LORAZEPAM 2 MG INJ IV ×4 (03:11→20:01)
[2018-03-23] MEDS: D5W-0.45 NACL + KCL 20 MEQ 1,000 ML IV ×3 (03:19→23:19)
[2018-03-23] MEDS: DIPHENHYDRAMINE 50 MG INJ IV ×3 (03:22→21:31)
[2018-03-23] MEDS: INSULIN ASPART [NOVOLOG] 3 ML PEN SC ×4 (06:00→23:56)
[2018-03-23 06:09] LABS: ADD MAN DIFF? NO
[2018-03-23 06:15] LABS: WHITE BLOOD COUNT 8.9 10^3/ul (4.8-10.8)
[2018-03-23 06:15] LABS: BASOPHILS % 0.2 % (0.0-2.0); EOSINOPHILS # 0.1 10^3/ul (0.0-0.5); EOSINOPHILS % 0.8 % (0.0-7.0); HEMATOCRIT 27.1 % (42.0-52.0); HEMOGLOBIN 9.3 g/dl (14.0-18.0); LYMPHOCYTES # 0.8 10^3/ul (0.8-2.9); LYMPHOCYTES % 9.4 % (15.0-51.0); MEAN CORPUSCULAR HEMOGLOBIN 31.4 pg (29.0-33.0); MEAN CORPUSCULAR HGB CONC 34.3 g/dl (32.0-37.0); MEAN CORPUSCULAR VOLUME 91.6 fl (82.0-101.0); MEAN PLATELET VOLUME 9.4 fl (7.4-10.4); MONOCYTE # 1.4 10^3/ul (0.3-0.9); MONOCYTES % 15.8 % (0.0-11.0); NEUTROPHIL # 6.5 10^3/ul (1.6-7.5); NEUTROPHILS % 73.5 % (39.0-77.0); PLATELET COUNT 199 10^3/UL (140-415); RED BLOOD COUNT 2.96 10^6/ul (4.70-6.10); RED CELL DISTRIBUTION WIDTH 13.1 % (11.5-14.5)
[2018-03-23 06:43] LABS: ANION GAP 13 (8-16); BLOOD UREA NITROGEN 13 mg/dl (7-20); CALCIUM 8.3 mg/dl (8.4-10.2); CARBON DIOXIDE 26 mmol/L (21-31); CHLORIDE 106 mmol/L (97-110); CREATININE 0.72 mg/dl (0.61-1.24); GLUCOSE 121 mg/dl (70-220); MAGNESIUM 1.6 mg/dl (1.7-2.5); POTASSIUM 3.5 mmol/L (3.5-5.1); SODIUM 141 mmol/L (135-144)
[2018-03-23 06:44] LABS: B-TYPE NATRIURETIC PEPTIDE 4010 PG/ML (0-450)
[2018-03-23] MEDS: GABAPENTIN 400 MG CAP PO (07:35)
[2018-03-23] MEDS: DOCUSATE SODIUM 100 MG CAP PO ×2 (07:35→21:00)
[2018-03-23] MEDS: LISINOPRIL 20 MG TAB PO (07:36)
[2018-03-23] MEDS: OLANZAPINE 10 MG VIAL IM (08:08)
[2018-03-23] MEDS: BICALUTAMIDE 50 MG TAB PO (08:08)
[2018-03-23] MEDS: QUETIAPINE 25 MG TAB PO ×2 (09:00→21:00)
[2018-03-23] MEDS: METHYLPREDNISOLONE 125 MG INJ IV ×3 (11:31→23:28)
[2018-03-23] MEDS: FUROSEMIDE 40 MG INJ IV (13:52)
[2018-03-23] MEDS: CEFTRIAXONE 1 GM/50 ML (PMX) 50 ML IVPB (13:52)
[2018-03-23] MEDS: MAGNESIUM SULFATE 4 GM/100 ML 100 ML IVPB (14:58)
[2018-03-23] MEDS: INSULIN GLARGINE [LANTus] (100 UNITS/ML) SYG SC (20:10)
[2018-03-23] MEDS: TAMSULOSIN (SR) 0.4 MG CAP PO (21:00)
[2018-03-23] MEDS ORDERED: QUETIAPINE 25 MG TAB PO (21:00)
[2018-03-23] MEDS: ATORVASTATIN 40 MG TAB PO (21:00)
[2018-03-23] MEDS: COLLAGENASE 5 GM (UD JAR) TOP (21:00)
[2018-03-23] MEDS: NEOMYC/POLYMYX/BACIT 30 GM OINT TOP (21:31)
[2018-03-24] MEDS: DIPHENHYDRAMINE 50 MG INJ IV (03:54)
[2018-03-24] MEDS: LORAZEPAM 2 MG INJ IV ×4 (04:04→22:07)
[2018-03-24 06:19] LABS: ADD MAN DIFF? NO
[2018-03-24] MEDS: METHYLPREDNISOLONE 125 MG INJ IV (06:20)
[2018-03-24] MEDS: INSULIN ASPART [NOVOLOG] 3 ML PEN SC ×4 (06:31→22:06)
[2018-03-24 06:39] LABS: WHITE BLOOD COUNT 7.5 10^3/ul (4.8-10.8)
[2018-03-24 06:39] LABS: ABNORMAL IP MESSAGE 1; BASOPHILS % 0.1 % (0.0-2.0); HEMATOCRIT 28.6 % (42.0-52.0); HEMOGLOBIN 9.9 g/dl (14.0-18.0); LYMPHOCYTES # 0.4 10^3/ul (0.8-2.9); LYMPHOCYTES % 4.7 % (15.0-51.0); MEAN CORPUSCULAR HGB CONC 34.6 g/dl (32.0-37.0); MEAN CORPUSCULAR VOLUME 89.7 fl (82.0-101.0); MEAN PLATELET VOLUME 9.9 fl (7.4-10.4); MONOCYTE # 0.5 10^3/ul (0.3-0.9); MONOCYTES % 6.6 % (0.0-11.0); NEUTROPHIL # 6.6 10^3/ul (1.6-7.5); NEUTROPHILS % 88.2 % (39.0-77.0); PLATELET COUNT 250 10^3/UL (140-415); POSITIVE DIFF @See below; RED BLOOD COUNT 3.19 10^6/ul (4.70-6.10); RED CELL DISTRIBUTION WIDTH 12.9 % (11.5-14.5)
[2018-03-24 06:56] LABS: ANION GAP 15 (8-16); BLOOD UREA NITROGEN 22 mg/dl (7-20); CALCIUM 8.5 mg/dl (8.4-10.2); CARBON DIOXIDE 26 mmol/L (21-31); CHLORIDE 103 mmol/L (97-110); CREATININE 0.83 mg/dl (0.61-1.24); GLUCOSE 282 mg/dl (70-220); MAGNESIUM 2.4 mg/dl (1.7-2.5); POTASSIUM 3.4 mmol/L (3.5-5.1); SODIUM 141 mmol/L (135-144)
[2018-03-24] MEDS: DOCUSATE SODIUM 100 MG CAP PO ×2 (07:31→21:15)
[2018-03-24] MEDS: BICALUTAMIDE 50 MG TAB PO (07:31)
[2018-03-24] MEDS: QUETIAPINE 25 MG TAB PO ×2 (07:31→21:15)
[2018-03-24] MEDS: LISINOPRIL 20 MG TAB PO (07:32)
[2018-03-24] MEDS: COLLAGENASE 5 GM (UD JAR) TOP (08:22)
[2018-03-24] MEDS: FUROSEMIDE 40 MG INJ IV (08:23)
[2018-03-24] MEDS: NEOMYC/POLYMYX/BACIT 30 GM OINT TOP ×2 (08:23→21:16)
[2018-03-24] MEDS: POTASSIUM CHLORIDE (SR) 20 MEQ TAB PO (10:35)
[2018-03-24] MEDS: CEFTRIAXONE 1 GM/50 ML (PMX) 50 ML IVPB (13:34)
[2018-03-24] MEDS: INSULIN GLARGINE [LANTus] (100 UNITS/ML) SYG SC (20:38)
[2018-03-24] MEDS: ATORVASTATIN 40 MG TAB PO (21:15)
[2018-03-24] MEDS: TAMSULOSIN (SR) 0.4 MG CAP PO (21:15)
[2018-03-25] MEDS: DIPHENHYDRAMINE 50 MG INJ IV ×2 (00:53→22:07)
[2018-03-25] MEDS: ACCU-CHEK XX (02:00)
[2018-03-25 06:00] LABS: ADD MAN DIFF? NO
[2018-03-25 06:06] LABS: HEMATOCRIT 29.8 % (42.0-52.0); HEMOGLOBIN 10.1 g/dl (14.0-18.0); LYMPHOCYTES # 0.7 10^3/ul (0.8-2.9); LYMPHOCYTES % 6.6 % (15.0-51.0); MEAN CORPUSCULAR HEMOGLOBIN 30.5 pg (29.0-33.0); MEAN CORPUSCULAR HGB CONC 33.9 g/dl (32.0-37.0); MEAN PLATELET VOLUME 9.8 fl (7.4-10.4); MONOCYTE # 1.2 10^3/ul (0.3-0.9); MONOCYTES % 11.7 % (0.0-11.0); NEUTROPHIL # 8.4 10^3/ul (1.6-7.5); NEUTROPHILS % 81.1 % (39.0-77.0); PLATELET COUNT 286 10^3/UL (140-415); RED BLOOD COUNT 3.31 10^6/ul (4.70-6.10); RED CELL DISTRIBUTION WIDTH 13.2 % (11.5-14.5)
[2018-03-25 06:06] LABS: WHITE BLOOD COUNT 10.4 10^3/ul (4.8-10.8)
[2018-03-25 06:24] LABS: ANION GAP 13 (8-16); BLOOD UREA NITROGEN 33 mg/dl (7-20); CALCIUM 8.6 mg/dl (8.4-10.2); CARBON DIOXIDE 28 mmol/L (21-31); CHLORIDE 108 mmol/L (97-110); CREATININE 0.91 mg/dl (0.61-1.24); GLUCOSE 231 mg/dl (70-220); MAGNESIUM 2.3 mg/dl (1.7-2.5); POTASSIUM 3.3 mmol/L (3.5-5.1); SODIUM 146 mmol/L (135-144)
[2018-03-25] MEDS: INSULIN ASPART [NOVOLOG] 3 ML PEN SC ×4 (08:50→20:44)
[2018-03-25] MEDS: DOCUSATE SODIUM 100 MG CAP PO ×2 (08:57→20:44)
[2018-03-25] MEDS: FUROSEMIDE 40 MG INJ IV (08:57)
[2018-03-25] MEDS: LISINOPRIL 20 MG TAB PO (08:58)
[2018-03-25] MEDS: QUETIAPINE 25 MG TAB PO ×2 (08:58→20:44)
[2018-03-25] MEDS: POTASSIUM CHLORIDE (SR) 20 MEQ TAB PO (08:59)
[2018-03-25] MEDS: NEOMYC/POLYMYX/BACIT 30 GM OINT TOP ×2 (08:59→20:45)
[2018-03-25] MEDS: COLLAGENASE 5 GM (UD JAR) TOP (09:11)
[2018-03-25] MEDS: BICALUTAMIDE 50 MG TAB PO (09:12)
[2018-03-25] MEDS ORDERED: POTASSIUM CHLORIDE (SR) 20 MEQ TAB PO (13:00)
[2018-03-25] MEDS: CEFTRIAXONE 1 GM/50 ML (PMX) 50 ML IVPB (13:23)
[2018-03-25] MEDS: INSULIN GLARGINE [LANTus] (100 UNITS/ML) SYG SC (19:50)
[2018-03-25] MEDS: ATORVASTATIN 40 MG TAB PO (20:44)
[2018-03-25] MEDS: TAMSULOSIN (SR) 0.4 MG CAP PO (20:44)
[2018-03-26] MEDS: ACCU-CHEK XX (02:00)
[2018-03-26] MEDS: LORAZEPAM 2 MG INJ IV ×2 (03:52→11:10)
[2018-03-26 06:13] LABS: ADD MAN DIFF? NO
[2018-03-26 06:17] LABS: BASOPHILS % 0.1 % (0.0-2.0); EOSINOPHILS # 0.1 10^3/ul (0.0-0.5); EOSINOPHILS % 0.7 % (0.0-7.0); HEMATOCRIT 34.2 % (42.0-52.0); HEMOGLOBIN 11.5 g/dl (14.0-18.0); LYMPHOCYTES # 1.4 10^3/ul (0.8-2.9); LYMPHOCYTES % 15.5 % (15.0-51.0); MEAN CORPUSCULAR HEMOGLOBIN 30.6 pg (29.0-33.0); MEAN CORPUSCULAR HGB CONC 33.6 g/dl (32.0-37.0); MEAN PLATELET VOLUME 11.4 fl (7.4-10.4); MONOCYTE # 1.3 10^3/ul (0.3-0.9); MONOCYTES % 14.2 % (0.0-11.0); NEUTROPHIL # 6.1 10^3/ul (1.6-7.5); NEUTROPHILS % 68.9 % (39.0-77.0); PLATELET COUNT 248 10^3/UL (140-415); RED BLOOD COUNT 3.76 10^6/ul (4.70-6.10); RED CELL DISTRIBUTION WIDTH 13.4 % (11.5-14.5)
[2018-03-26 06:17] LABS: WHITE BLOOD COUNT 8.8 10^3/ul (4.8-10.8)
[2018-03-26 07:00] LABS: ANION GAP 13 (8-16); BLOOD UREA NITROGEN 35 mg/dl (7-20); CALCIUM 8.7 mg/dl (8.4-10.2); CARBON DIOXIDE 28 mmol/L (21-31); CHLORIDE 108 mmol/L (97-110); CREATININE 0.87 mg/dl (0.61-1.24); GLUCOSE 136 mg/dl (70-220); POTASSIUM 3.1 mmol/L (3.5-5.1); SODIUM 146 mmol/L (135-144)
[2018-03-26] MEDS: FUROSEMIDE 40 MG INJ IV (09:29)
[2018-03-26] MEDS: DOCUSATE SODIUM 100 MG CAP PO ×2 (09:29→20:25)
[2018-03-26] MEDS: BICALUTAMIDE 50 MG TAB PO (09:37)
[2018-03-26] MEDS: LISINOPRIL 20 MG TAB PO (09:39)
[2018-03-26] MEDS: POTASSIUM CHLORIDE (SR) 20 MEQ TAB PO (09:40)
[2018-03-26] MEDS: QUETIAPINE 25 MG TAB PO ×2 (09:40→20:25)
[2018-03-26] MEDS: COLLAGENASE 5 GM (UD JAR) TOP (09:41)
[2018-03-26] MEDS: NEOMYC/POLYMYX/BACIT 30 GM OINT TOP ×2 (09:41→20:25)
[2018-03-26] MEDS: INSULIN ASPART [NOVOLOG] 3 ML PEN SC ×4 (09:44→20:32)
[2018-03-26] MEDS: MUPIROCIN 2% 22 GM OINT TOP ×2 (11:12→20:25)
[2018-03-26] MEDS ORDERED: POTASSIUM CHLORIDE 50 ML IVPB (13:00)
[2018-03-26] MEDS: POTASSIUM CHLORIDE 100 ML IVPB ×2 (14:19→17:13)
[2018-03-26] MEDS: DIPHENHYDRAMINE 50 MG INJ IV (15:10)
[2018-03-26] MEDS: MAGNESIUM HYDROXIDE 30ML CUP PO (20:24)
[2018-03-26] MEDS: ATORVASTATIN 40 MG TAB PO (20:25)
[2018-03-26] MEDS: TAMSULOSIN (SR) 0.4 MG CAP PO (20:25)
[2018-03-26] MEDS: INSULIN GLARGINE [LANTus] (100 UNITS/ML) SYG SC (21:17)
[2018-03-27] MEDS: ACCU-CHEK XX (02:00)
[2018-03-27 06:09] LABS: ADD MAN DIFF? NO
[2018-03-27 06:15] LABS: BASOPHILS % 0.1 % (0.0-2.0); EOSINOPHILS # 0.3 10^3/ul (0.0-0.5); EOSINOPHILS % 3.4 % (0.0-7.0); HEMATOCRIT 33.6 % (42.0-52.0); HEMOGLOBIN 11.2 g/dl (14.0-18.0); LYMPHOCYTES # 1.4 10^3/ul (0.8-2.9); LYMPHOCYTES % 16.8 % (15.0-51.0); MEAN CORPUSCULAR HEMOGLOBIN 30.6 pg (29.0-33.0); MEAN CORPUSCULAR HGB CONC 33.3 g/dl (32.0-37.0); MEAN CORPUSCULAR VOLUME 91.8 fl (82.0-101.0); MEAN PLATELET VOLUME 9.8 fl (7.4-10.4); MONOCYTE # 1.1 10^3/ul (0.3-0.9); MONOCYTES % 13.2 % (0.0-11.0); NEUTROPHIL # 5.6 10^3/ul (1.6-7.5); PLATELET COUNT 313 10^3/UL (140-415); RED BLOOD COUNT 3.66 10^6/ul (4.70-6.10); RED CELL DISTRIBUTION WIDTH 13.2 % (11.5-14.5)
[2018-03-27 06:15] LABS: WHITE BLOOD COUNT 8.4 10^3/ul (4.8-10.8)
[2018-03-27 06:42] LABS: ANION GAP 14 (8-16); BLOOD UREA NITROGEN 31 mg/dl (7-20); CALCIUM 8.6 mg/dl (8.4-10.2); CARBON DIOXIDE 27 mmol/L (21-31); CHLORIDE 110 mmol/L (97-110); CREATININE 0.81 mg/dl (0.61-1.24); GLUCOSE 127 mg/dl (70-220); MAGNESIUM 2.1 mg/dl (1.7-2.5); POTASSIUM 3.6 mmol/L (3.5-5.1); SODIUM 147 mmol/L (135-144)
[2018-03-27] MEDS: INSULIN ASPART [NOVOLOG] 3 ML PEN SC ×4 (08:00→20:24)
[2018-03-27] MEDS: DOCUSATE SODIUM 100 MG CAP PO ×2 (09:00→20:20)
[2018-03-27] MEDS: LISINOPRIL 20 MG TAB PO (09:00)
[2018-03-27] MEDS: POTASSIUM CHLORIDE (SR) 20 MEQ TAB PO (09:00)
[2018-03-27] MEDS: QUETIAPINE 25 MG TAB PO ×2 (09:00→20:20)
[2018-03-27] MEDS: BICALUTAMIDE 50 MG TAB PO (09:00)
[2018-03-27] MEDS: COLLAGENASE 5 GM (UD JAR) TOP (09:06)
[2018-03-27] MEDS: MUPIROCIN 2% 22 GM OINT TOP ×2 (09:06→20:20)
[2018-03-27] MEDS: NEOMYC/POLYMYX/BACIT 30 GM OINT TOP ×2 (09:06→20:20)
[2018-03-27] MEDS: MAGNESIUM CITRATE 300 ML BTL PO (10:58)
[2018-03-27] MEDS: TAMSULOSIN (SR) 0.4 MG CAP PO (20:20)
[2018-03-27] MEDS: ATORVASTATIN 40 MG TAB PO (20:20)
[2018-03-27] MEDS: INSULIN GLARGINE [LANTus] (100 UNITS/ML) SYG SC (20:23)
[2018-03-28] MEDS: ACCU-CHEK XX (01:34)
[2018-03-28] MEDS: DIPHENHYDRAMINE 50 MG INJ IV (02:01)
[2018-03-28 06:20] LABS: ADD MAN DIFF? NO
[2018-03-28 06:25] LABS: BASOPHILS % 0.2 % (0.0-2.0); EOSINOPHILS # 0.5 10^3/ul (0.0-0.5); EOSINOPHILS % 4.3 % (0.0-7.0); HEMATOCRIT 34.3 % (42.0-52.0); HEMOGLOBIN 11.4 g/dl (14.0-18.0); LYMPHOCYTES # 1.8 10^3/ul (0.8-2.9); LYMPHOCYTES % 17.6 % (15.0-51.0); MEAN CORPUSCULAR HEMOGLOBIN 30.6 pg (29.0-33.0); MEAN CORPUSCULAR HGB CONC 33.2 g/dl (32.0-37.0); MEAN CORPUSCULAR VOLUME 92.2 fl (82.0-101.0); MONOCYTE # 1.2 10^3/ul (0.3-0.9); NEUTROPHIL # 6.9 10^3/ul (1.6-7.5); PLATELET COUNT 281 10^3/UL (140-415); RED BLOOD COUNT 3.72 10^6/ul (4.70-6.10); RED CELL DISTRIBUTION WIDTH 13.2 % (11.5-14.5)
[2018-03-28 06:25] LABS: WHITE BLOOD COUNT 10.4 10^3/ul (4.8-10.8)
[2018-03-28 07:07] LABS: ANION GAP 14 (8-16); BLOOD UREA NITROGEN 31 mg/dl (7-20); CALCIUM 8.6 mg/dl (8.4-10.2); CARBON DIOXIDE 27 mmol/L (21-31); CHLORIDE 106 mmol/L (97-110); CREATININE 0.89 mg/dl (0.61-1.24); GLUCOSE 123 mg/dl (70-220); MAGNESIUM 2.1 mg/dl (1.7-2.5); POTASSIUM 3.5 mmol/L (3.5-5.1); SODIUM 143 mmol/L (135-144)
[2018-03-28] MEDS: NEOMYC/POLYMYX/BACIT 30 GM OINT TOP ×2 (08:54→20:38)
[2018-03-28] MEDS: MUPIROCIN 2% 22 GM OINT TOP ×2 (08:54→20:38)
[2018-03-28] MEDS: QUETIAPINE 25 MG TAB PO ×2 (08:55→20:37)
[2018-03-28] MEDS: COLLAGENASE 5 GM (UD JAR) TOP (08:55)
[2018-03-28] MEDS: DOCUSATE SODIUM 100 MG CAP PO ×2 (08:55→20:37)
[2018-03-28] MEDS: LISINOPRIL 20 MG TAB PO (08:56)
[2018-03-28] MEDS: BICALUTAMIDE 50 MG TAB PO (09:05)
[2018-03-28] MEDS: POTASSIUM CHLORIDE (SR) 20 MEQ TAB PO (09:11)
[2018-03-28] MEDS: INSULIN ASPART [NOVOLOG] 3 ML PEN SC ×4 (09:28→20:46)
[2018-03-28] MEDS: MAGNESIUM CITRATE 300 ML BTL PO (14:41)
[2018-03-28] MEDS: TAMSULOSIN (SR) 0.4 MG CAP PO (20:37)
[2018-03-28] MEDS: ATORVASTATIN 40 MG TAB PO (20:37)
[2018-03-28] MEDS: INSULIN GLARGINE [LANTus] (100 UNITS/ML) SYG SC (20:46)
[2018-03-28] MEDS: LORAZEPAM 0.5 MG TAB PO (22:50)
[2018-03-29] MEDS: LORAZEPAM 2 MG INJ IM (00:23)
[2018-03-29] MEDS: DIPHENHYDRAMINE 50 MG INJ IV (00:24)
[2018-03-29] MEDS: traZODone 50 MG TAB PO (01:53)
[2018-03-29] MEDS: ACCU-CHEK XX (02:47)
[2018-03-29] MEDS: INSULIN ASPART [NOVOLOG] 3 ML PEN SC ×4 (08:00→20:16)
[2018-03-29] MEDS: COLLAGENASE 5 GM (UD JAR) TOP (08:45)
[2018-03-29] MEDS: POTASSIUM CHLORIDE (SR) 20 MEQ TAB PO (08:45)
[2018-03-29] MEDS: NEOMYC/POLYMYX/BACIT 30 GM OINT TOP ×2 (08:47→20:13)
[2018-03-29] MEDS: LISINOPRIL 20 MG TAB PO (08:47)
[2018-03-29] MEDS: MUPIROCIN 2% 22 GM OINT TOP ×2 (08:47→20:22)
[2018-03-29] MEDS: DOCUSATE SODIUM 100 MG CAP PO ×2 (08:48→20:13)
[2018-03-29] MEDS: BICALUTAMIDE 50 MG TAB PO (08:49)
[2018-03-29] MEDS: QUETIAPINE 25 MG TAB PO ×2 (08:54→20:14)
[2018-03-29] MEDS: TAMSULOSIN (SR) 0.4 MG CAP PO (20:14)
[2018-03-29] MEDS: ATORVASTATIN 40 MG TAB PO (20:14)
[2018-03-29] MEDS: INSULIN GLARGINE [LANTus] (100 UNITS/ML) SYG SC (20:15)
[2018-03-30] MEDS: ACCU-CHEK XX (02:39)
[2018-03-30] MEDS: INSULIN ASPART [NOVOLOG] 3 ML PEN SC ×4 (08:00→22:05)
[2018-03-30] MEDS: POTASSIUM CHLORIDE (SR) 20 MEQ TAB PO (08:22)
[2018-03-30] MEDS: QUETIAPINE 25 MG TAB PO ×2 (08:22→21:57)
[2018-03-30] MEDS: NEOMYC/POLYMYX/BACIT 30 GM OINT TOP ×2 (08:22→21:58)
[2018-03-30] MEDS: DOCUSATE SODIUM 100 MG CAP PO ×2 (08:22→21:57)
[2018-03-30] MEDS: COLLAGENASE 5 GM (UD JAR) TOP (08:22)
[2018-03-30] MEDS: LISINOPRIL 20 MG TAB PO (08:23)
[2018-03-30] MEDS: MUPIROCIN 2% 22 GM OINT TOP ×2 (08:23→21:58)
[2018-03-30] MEDS: BICALUTAMIDE 50 MG TAB PO (08:24)
[2018-03-30 08:58] LABS: ADD MAN DIFF? NO
[2018-03-30 09:11] LABS: WHITE BLOOD COUNT 9.1 10^3/ul (4.8-10.8)
[2018-03-30 09:11] LABS: BASOPHILS % 0.2 % (0.0-2.0); EOSINOPHILS # 0.4 10^3/ul (0.0-0.5); EOSINOPHILS % 4.2 % (0.0-7.0); HEMATOCRIT 35.6 % (42.0-52.0); HEMOGLOBIN 11.8 g/dl (14.0-18.0); LYMPHOCYTES # 1.7 10^3/ul (0.8-2.9); LYMPHOCYTES % 18.6 % (15.0-51.0); MEAN CORPUSCULAR HEMOGLOBIN 30.9 pg (29.0-33.0); MEAN CORPUSCULAR HGB CONC 33.1 g/dl (32.0-37.0); MEAN CORPUSCULAR VOLUME 93.2 fl (82.0-101.0); MEAN PLATELET VOLUME 9.9 fl (7.4-10.4); MONOCYTE # 1.1 10^3/ul (0.3-0.9); MONOCYTES % 12.5 % (0.0-11.0); NEUTROPHIL # 5.8 10^3/ul (1.6-7.5); NEUTROPHILS % 63.7 % (39.0-77.0); PLATELET COUNT 342 10^3/UL (140-415); RED BLOOD COUNT 3.82 10^6/ul (4.70-6.10); RED CELL DISTRIBUTION WIDTH 13.2 % (11.5-14.5)
[2018-03-30 09:30] LABS: ANION GAP 13 (8-16); BLOOD UREA NITROGEN 20 mg/dl (7-20); CALCIUM 8.5 mg/dl (8.4-10.2); CARBON DIOXIDE 25 mmol/L (21-31); CHLORIDE 107 mmol/L (97-110); CREATININE 0.97 mg/dl (0.61-1.24); GLUCOSE 130 mg/dl (70-220); SODIUM 141 mmol/L (135-144)
[2018-03-30] MEDS: TAMSULOSIN (SR) 0.4 MG CAP PO (21:57)
[2018-03-30] MEDS: ATORVASTATIN 40 MG TAB PO (21:57)
[2018-03-30] MEDS: BALSAM PERU/CASTOR OIL 60 GM TUBE TOP (21:57)
[2018-03-30] MEDS: INSULIN GLARGINE [LANTus] (100 UNITS/ML) SYG SC (22:02)
[2018-03-31] MEDS: traZODone 50 MG TAB PO ×2 (00:09→04:04)
[2018-03-31] MEDS: ACCU-CHEK XX (02:00)
[2018-03-31] MEDS: QUETIAPINE 25 MG TAB PO ×2 (08:27→20:43)
[2018-03-31] MEDS: POTASSIUM CHLORIDE (SR) 20 MEQ TAB PO (08:27)
[2018-03-31] MEDS: LISINOPRIL 20 MG TAB PO (08:28)
[2018-03-31] MEDS: BICALUTAMIDE 50 MG TAB PO (08:29)
[2018-03-31] MEDS: DOCUSATE SODIUM 100 MG CAP PO ×2 (08:29→20:43)
[2018-03-31] MEDS: INSULIN ASPART [NOVOLOG] 3 ML PEN SC ×4 (08:30→20:42)
[2018-03-31] MEDS: MUPIROCIN 2% 22 GM OINT TOP ×2 (08:31→20:44)
[2018-03-31] MEDS: COLLAGENASE 5 GM (UD JAR) TOP (08:31)
[2018-03-31] MEDS: NEOMYC/POLYMYX/BACIT 30 GM OINT TOP ×2 (08:31→20:44)
[2018-03-31] MEDS: BALSAM PERU/CASTOR OIL 60 GM TUBE TOP ×2 (08:31→20:45)
[2018-03-31] MEDS: PERMETHRIN 1% 59 ML TOP (17:00)
[2018-03-31] MEDS: INSULIN GLARGINE [LANTus] (100 UNITS/ML) SYG SC (20:42)
[2018-03-31] MEDS: ATORVASTATIN 40 MG TAB PO (20:43)
[2018-03-31] MEDS: TAMSULOSIN (SR) 0.4 MG CAP PO (20:43)
[2018-04-01] MEDS: ACCU-CHEK XX (02:00)
[2018-04-01] MEDS: traZODone 50 MG TAB PO ×3 (04:13→23:37)
[2018-04-01] MEDS: LISINOPRIL 20 MG TAB PO (08:45)
[2018-04-01] MEDS: DOCUSATE SODIUM 100 MG CAP PO ×2 (08:45→20:12)
[2018-04-01] MEDS: INSULIN ASPART [NOVOLOG] 3 ML PEN SC ×4 (08:45→20:15)
[2018-04-01] MEDS: QUETIAPINE 25 MG TAB PO ×2 (08:45→20:12)
[2018-04-01] MEDS: POTASSIUM CHLORIDE (SR) 20 MEQ TAB PO (08:45)
[2018-04-01] MEDS: BALSAM PERU/CASTOR OIL 60 GM TUBE TOP ×2 (08:47→20:18)
[2018-04-01] MEDS: MUPIROCIN 2% 22 GM OINT TOP ×2 (08:47→20:20)
[2018-04-01] MEDS: NEOMYC/POLYMYX/BACIT 30 GM OINT TOP ×2 (08:47→20:18)
[2018-04-01] MEDS: COLLAGENASE 5 GM (UD JAR) TOP (08:47)
[2018-04-01] MEDS: BICALUTAMIDE 50 MG TAB PO (08:47)
[2018-04-01] MEDS: TAMSULOSIN (SR) 0.4 MG CAP PO (20:12)
[2018-04-01] MEDS: ATORVASTATIN 40 MG TAB PO (20:12)
[2018-04-01] MEDS: INSULIN GLARGINE [LANTus] (100 UNITS/ML) SYG SC (20:15)
[2018-04-02] MEDS: ACCU-CHEK XX (02:00)
[2018-04-02] MEDS: LISINOPRIL 20 MG TAB PO (08:16)
[2018-04-02] MEDS: DOCUSATE SODIUM 100 MG CAP PO ×2 (08:16→20:55)
[2018-04-02] MEDS: QUETIAPINE 25 MG TAB PO ×2 (08:16→20:56)
[2018-04-02] MEDS: POTASSIUM CHLORIDE (SR) 20 MEQ TAB PO (08:16)
[2018-04-02] MEDS: BICALUTAMIDE 50 MG TAB PO (08:18)
[2018-04-02] MEDS: INSULIN ASPART [NOVOLOG] 3 ML PEN SC ×4 (09:15→21:01)
[2018-04-02] MEDS: BALSAM PERU/CASTOR OIL 60 GM TUBE TOP ×2 (14:33→21:02)
[2018-04-02] MEDS: COLLAGENASE 5 GM (UD JAR) TOP (14:33)
[2018-04-02] MEDS: NEOMYC/POLYMYX/BACIT 30 GM OINT TOP ×2 (14:34→21:02)
[2018-04-02] MEDS: MUPIROCIN 2% 22 GM OINT TOP ×2 (15:00→21:02)
[2018-04-02] MEDS: PERMETHRIN 1% 59 ML TOP (15:02)
[2018-04-02] MEDS: TAMSULOSIN (SR) 0.4 MG CAP PO (20:55)
[2018-04-02] MEDS: ATORVASTATIN 40 MG TAB PO (20:56)
[2018-04-02] MEDS: INSULIN GLARGINE [LANTus] (100 UNITS/ML) SYG SC (21:00)
[2018-04-02] MEDS: traZODone 50 MG TAB PO (21:46)
[2018-04-03] MEDS: ACCU-CHEK XX (02:00)
[2018-04-03] MEDS: traZODone 50 MG TAB PO (06:04)
[2018-04-03] MEDS: QUETIAPINE 25 MG TAB PO ×2 (08:02→20:37)
[2018-04-03] MEDS: INSULIN ASPART [NOVOLOG] 3 ML PEN SC ×4 (08:02→20:39)
[2018-04-03] MEDS: POTASSIUM CHLORIDE (SR) 20 MEQ TAB PO (08:03)
[2018-04-03] MEDS: DOCUSATE SODIUM 100 MG CAP PO ×2 (08:03→20:37)
[2018-04-03] MEDS: COLLAGENASE 5 GM (UD JAR) TOP (08:04)
[2018-04-03] MEDS: LISINOPRIL 20 MG TAB PO (08:04)
[2018-04-03] MEDS: MUPIROCIN 2% 22 GM OINT TOP ×2 (08:04→20:40)
[2018-04-03] MEDS: BALSAM PERU/CASTOR OIL 60 GM TUBE TOP ×2 (08:04→20:40)
[2018-04-03] MEDS: NEOMYC/POLYMYX/BACIT 30 GM OINT TOP ×2 (08:04→20:39)
[2018-04-03] MEDS: BICALUTAMIDE 50 MG TAB PO (08:08)
[2018-04-03] MEDS: ATORVASTATIN 40 MG TAB PO (20:37)
[2018-04-03] MEDS: TAMSULOSIN (SR) 0.4 MG CAP PO (20:37)
[2018-04-03] MEDS: INSULIN GLARGINE [LANTus] (100 UNITS/ML) SYG SC (20:38)
[2018-04-04] MEDS: traZODone 50 MG TAB PO ×2 (00:13→18:32)
[2018-04-04] MEDS: ACCU-CHEK XX (01:26)
[2018-04-04 06:31] LABS: ADD MAN DIFF? NO
[2018-04-04 06:35] LABS: WHITE BLOOD COUNT 8.6 10^3/ul (4.8-10.8)
[2018-04-04 06:35] LABS: BASOPHIL # 0.1 10^3/ul (0.0-0.1); BASOPHILS % 0.6 % (0.0-2.0); EOSINOPHILS # 0.2 10^3/ul (0.0-0.5); EOSINOPHILS % 2.4 % (0.0-7.0); HEMOGLOBIN 10.6 g/dl (14.0-18.0); LYMPHOCYTES # 1.5 10^3/ul (0.8-2.9); LYMPHOCYTES % 17.4 % (15.0-51.0); MEAN CORPUSCULAR HEMOGLOBIN 30.8 pg (29.0-33.0); MEAN CORPUSCULAR HGB CONC 33.1 g/dl (32.0-37.0); MEAN PLATELET VOLUME 9.8 fl (7.4-10.4); NEUTROPHIL # 5.9 10^3/ul (1.6-7.5); PLATELET COUNT 301 10^3/UL (140-415); RED BLOOD COUNT 3.44 10^6/ul (4.70-6.10); RED CELL DISTRIBUTION WIDTH 13.2 % (11.5-14.5)
[2018-04-04 07:23] LABS: ANION GAP 13 (8-16); BLOOD UREA NITROGEN 22 mg/dl (7-20); CALCIUM 8.9 mg/dl (8.4-10.2); CARBON DIOXIDE 22 mmol/L (21-31); CHLORIDE 109 mmol/L (97-110); CREATININE 0.98 mg/dl (0.61-1.24); GLUCOSE 121 mg/dl (70-220); POTASSIUM 4.1 mmol/L (3.5-5.1); SODIUM 140 mmol/L (135-144)
[2018-04-04] MEDS: INSULIN ASPART [NOVOLOG] 3 ML PEN SC ×4 (08:31→21:00)
[2018-04-04] MEDS: POTASSIUM CHLORIDE (SR) 20 MEQ TAB PO (08:37)
[2018-04-04] MEDS: QUETIAPINE 25 MG TAB PO ×2 (08:37→23:02)
[2018-04-04] MEDS: DOCUSATE SODIUM 100 MG CAP PO ×3 (08:37→23:02)
[2018-04-04] MEDS: BICALUTAMIDE 50 MG TAB PO (08:40)
[2018-04-04] MEDS: LISINOPRIL 20 MG TAB PO (08:47)
[2018-04-04] MEDS: MUPIROCIN 2% 22 GM OINT TOP ×2 (08:47→23:04)
[2018-04-04] MEDS: NEOMYC/POLYMYX/BACIT 30 GM OINT TOP ×2 (08:47→23:04)
[2018-04-04] MEDS: BALSAM PERU/CASTOR OIL 60 GM TUBE TOP ×2 (08:47→23:04)
[2018-04-04] MEDS: COLLAGENASE 5 GM (UD JAR) TOP (08:48)
[2018-04-04] MEDS: ATORVASTATIN 40 MG TAB PO (23:02)
[2018-04-04] MEDS: TAMSULOSIN (SR) 0.4 MG CAP PO (23:02)
[2018-04-04] MEDS: INSULIN GLARGINE [LANTus] (100 UNITS/ML) SYG SC (23:03)
[2018-04-05] MEDS: traZODone 50 MG TAB PO ×2 (00:38→22:08)
[2018-04-05] MEDS: ACCU-CHEK XX (02:00)
[2018-04-05] MEDS: COLLAGENASE 5 GM (UD JAR) TOP (08:24)
[2018-04-05] MEDS: INSULIN ASPART [NOVOLOG] 3 ML PEN SC ×4 (08:25→20:51)
[2018-04-05] MEDS: BICALUTAMIDE 50 MG TAB PO (08:26)
[2018-04-05] MEDS: POTASSIUM CHLORIDE (SR) 20 MEQ TAB PO (08:26)
[2018-04-05] MEDS: DOCUSATE SODIUM 100 MG CAP PO ×2 (08:26→20:52)
[2018-04-05] MEDS: QUETIAPINE 25 MG TAB PO ×2 (08:26→20:52)
[2018-04-05] MEDS: MUPIROCIN 2% 22 GM OINT TOP ×2 (08:31→20:59)
[2018-04-05] MEDS: BALSAM PERU/CASTOR OIL 60 GM TUBE TOP ×2 (08:31→20:59)
[2018-04-05] MEDS: NEOMYC/POLYMYX/BACIT 30 GM OINT TOP ×2 (08:32→20:59)
[2018-04-05] MEDS: LISINOPRIL 20 MG TAB PO (08:32)
[2018-04-05] MEDS: INSULIN GLARGINE [LANTus] (100 UNITS/ML) SYG SC (20:51)
[2018-04-05] MEDS: TAMSULOSIN (SR) 0.4 MG CAP PO (20:52)
[2018-04-05] MEDS: ATORVASTATIN 40 MG TAB PO (20:52)
[2018-04-06] MEDS: ACCU-CHEK XX (02:00)
[2018-04-06] MEDS: INSULIN ASPART [NOVOLOG] 3 ML PEN SC ×4 (08:54→20:53)
[2018-04-06] MEDS: BICALUTAMIDE 50 MG TAB PO (08:55)
[2018-04-06] MEDS: DOCUSATE SODIUM 100 MG CAP PO ×2 (08:55→20:48)
[2018-04-06] MEDS: QUETIAPINE 25 MG TAB PO ×2 (08:58→20:48)
[2018-04-06] MEDS: POTASSIUM CHLORIDE (SR) 20 MEQ TAB PO (08:58)
[2018-04-06] MEDS: BALSAM PERU/CASTOR OIL 60 GM TUBE TOP ×2 (08:59→20:49)
[2018-04-06] MEDS: LISINOPRIL 20 MG TAB PO (08:59)
[2018-04-06] MEDS: NEOMYC/POLYMYX/BACIT 30 GM OINT TOP ×2 (08:59→20:48)
[2018-04-06] MEDS: COLLAGENASE 5 GM (UD JAR) TOP (08:59)
[2018-04-06] MEDS: MUPIROCIN 2% 22 GM OINT TOP ×2 (09:00→20:48)
[2018-04-06] MEDS: INSULIN GLARGINE [LANTus] (100 UNITS/ML) SYG SC (20:10)
[2018-04-06] MEDS: ATORVASTATIN 40 MG TAB PO (20:48)
[2018-04-06] MEDS: traZODone 50 MG TAB PO (20:48)
[2018-04-06] MEDS: TAMSULOSIN (SR) 0.4 MG CAP PO (20:48)
[2018-04-10] MEDS ORDERED: PERMETHRIN 1% 59 ML TOP (17:00)
[2018-04-12] MEDS ORDERED: PERMETHRIN 1% 59 ML TOP (09:00)
== END 2018-04-06 21:25 | DRG 459 ==
LOC: SUR 08:06 → 6WM 03-19 18:15 → PP2 03-29 23:22
PROVIDERS: Neurological Surgery
PROC: 0SG30AJ Fusion of Lumbosacral Joint with Interbody Fusion Device, Posterior Approach, Anterior Column, Open Approach (ICD-10-PCS; principal; 2018-03-18 10:30)
PROC: 0SG00AJ Fusion of Lumbar Vertebral Joint with Interbody Fusion Device, Posterior Approach, Anterior Column, Open Approach (ICD-10-PCS; 2018-03-18 10:30)
PROC: 0ST20ZZ Resection of Lumbar Vertebral Disc, Open Approach (ICD-10-PCS; 2018-03-18 10:30)
PROC: 0ST40ZZ Resection of Lumbosacral Disc, Open Approach (ICD-10-PCS; 2018-03-18 10:30)
PROC: 01NB0ZZ Release Lumbar Nerve, Open Approach (ICD-10-PCS; 2018-03-18 10:30)
PROC: 4A11X4G Monitoring of Peripheral Nervous Electrical Activity, Intraoperative, External Approach (ICD-10-PCS; 2018-03-18 10:30)
DX: M51.17 Intervertebral disc disorders with radiculopathy, lumbosacral region (principal); L89.893 Pressure ulcer of other site, stage 3; G93.49 Other encephalopathy; L03.119 Cellulitis of unspecified part of limb; F05 Delirium due to known physiological condition; I42.9 Cardiomyopathy, unspecified; I11.0 Hypertensive heart disease with heart failure; I50.9 Heart failure, unspecified; M51.36 Other intervertebral disc degeneration, lumbar region; E78.5 Hyperlipidemia, unspecified; N40.0 Benign prostatic hyperplasia without lower urinary tract symptoms; E11.9 Type 2 diabetes mellitus without complications; Z79.4 Long term (current) use of insulin; G89.29 Other chronic pain; Z95.4 Presence of other heart-valve replacement; D64.9 Anemia, unspecified; I25.10 Atherosclerotic heart disease of native coronary artery without angina pectoris; Z95.1 Presence of aortocoronary bypass graft; M43.17 Spondylolisthesis, lumbosacral region; C61 Malignant neoplasm of prostate; Z92.3 Personal history of irradiation; I34.0 Nonrheumatic mitral (valve) insufficiency; B85.2 Pediculosis, unspecified
CPT/HCPCS: 71045; 72114; 80048; 81001; 82728; 82962; 83735; 83880; 85025; 86850; 86900; 86901; 87086; 92523; 92526; 92610; 97110; 97116; 97162; 97530; C9359

== ENCOUNTER 2018-04-06 21:29 | Inpatient (IN) | payer MEDICARE, OTHER ==
[2018-04-06] MEDS ORDERED: PENDING SANTYL ORDER FOR WOUND CARE XX (23:30)
[2018-04-06] MEDS ORDERED: GLUCAGON 1 MG INJ IM (23:45)
[2018-04-06] MEDS ORDERED: GLUCOSE GEL 15 GRAM TUBE BUCCAL (23:45)
[2018-04-06] MEDS ORDERED: DEXTROSE 50% 50 ML SYRINGE IV ×2 (23:45)
[2018-04-06] MEDS ORDERED: GLUCOSE GEL 15 GRAM TUBE PO ×2 (23:45)
[2018-04-06] MEDS ORDERED: ONDANSETRON 4 MG INJ IV (23:45)
[2018-04-06] MEDS ORDERED: DIPHENHYDRAMINE 50 MG INJ IV (23:45)
[2018-04-06] MEDS ORDERED: NALOXONE (0.4 MG/ML) INJ IV (23:45)
[2018-04-07] MEDS: ACCUCHECK AT 2AM (Patients on SS coverage) XX (02:00)
[2018-04-07 02:35] LABS: UR BILIRUBIN (Dip) NEGATIVE (NEGATIVE); UR BLOOD (Dip) NEGATIVE (NEGATIVE); UR CLARITY CLEAR (CLEAR); UR COLOR YELLOW (YELLOW); UR GLUCOSE (Dip) NEGATIVE (NEGATIVE); UR KETONES (Dip) NEGATIVE (NEGATIVE); UR LEUKOCYTE ESTERASE (Dip) NEGATIVE Leu/ul (NEGATIVE); UR NITRITE (Dip) NEGATIVE (NEGATIVE); UR SPECIFIC GRAVITY (Dip) 1.013 (1.003-1.030); UR TOTAL PROTEIN (Dip) NEGATIVE (NEGATIVE); UR UROBILINOGEN (Dip) NEGATIVE (NEGATIVE)
[2018-04-07 02:36] LABS: ADD UMIC NO; UR ASCORBIC ACID NEGATIVE (NEGATIVE)
[2018-04-07] MEDS: ACETAMINOPHEN 325 MG TAB PO (03:01)
[2018-04-07] MEDS: traMADol 50 MG TAB PO ×3 (06:43→20:31)
[2018-04-07 07:19] LABS: ADD MAN DIFF? NO
[2018-04-07 07:25] LABS: WHITE BLOOD COUNT 6.9 10^3/ul (4.8-10.8)
[2018-04-07 07:25] LABS: BASOPHIL # 0.1 10^3/ul (0.0-0.1); BASOPHILS % 0.7 % (0.0-2.0); EOSINOPHILS # 0.4 10^3/ul (0.0-0.5); EOSINOPHILS % 5.7 % (0.0-7.0); HEMATOCRIT 31.2 % (42.0-52.0); HEMOGLOBIN 10.4 g/dl (14.0-18.0); LYMPHOCYTES # 1.1 10^3/ul (0.8-2.9); LYMPHOCYTES % 16.4 % (15.0-51.0); MEAN CORPUSCULAR HGB CONC 33.3 g/dl (32.0-37.0); MEAN CORPUSCULAR VOLUME 92.9 fl (82.0-101.0); MEAN PLATELET VOLUME 9.8 fl (7.4-10.4); MONOCYTE # 0.8 10^3/ul (0.3-0.9); MONOCYTES % 11.7 % (0.0-11.0); NEUTROPHIL # 4.5 10^3/ul (1.6-7.5); NEUTROPHILS % 65.1 % (39.0-77.0); PLATELET COUNT 238 10^3/UL (140-415); RED BLOOD COUNT 3.36 10^6/ul (4.70-6.10); RED CELL DISTRIBUTION WIDTH 13.5 % (11.5-14.5)
[2018-04-07 07:59] LABS: ALANINE AMINOTRANSFERASE 34 IU/L (13-69); ALBUMIN 3.3 g/dl (3.3-4.9); ALBUMIN/GLOBULIN RATIO 1.32; ALKALINE PHOSPHATASE 121 IU/L (42-121); ANION GAP 15 (8-16); ASPARTATE AMINO TRANSFERASE 30 IU/L (15-46); BILIRUBIN,INDIRECT 0.3 mg/dl (0-1.1); BILIRUBIN,TOTAL 0.3 mg/dl (0.2-1.3); BLOOD UREA NITROGEN 24 mg/dl (7-20); CALCIUM 8.9 mg/dl (8.4-10.2); CARBON DIOXIDE 24 mmol/L (21-31); CHLORIDE 110 mmol/L (97-110); CREATININE 0.92 mg/dl (0.61-1.24); GLUCOSE 122 mg/dl (70-220); SODIUM 145 mmol/L (135-144); TOTAL PROTEIN 5.8 g/dl (6.1-8.1)
[2018-04-07] MEDS: Insulin NOVOLOG SS MODERATE Algorithm (SS with meals and bedtime) SC ×4 (08:09→20:26)
[2018-04-07] MEDS: BISACODYL 10 MG SUPP PR (09:00)
[2018-04-07] MEDS: DOCUSATE SODIUM 100 MG CAP PO ×2 (09:00→20:22)
[2018-04-07] MEDS: BICALUTAMIDE 50 MG TAB PO (09:00)
[2018-04-07] MEDS: LISINOPRIL 20 MG TAB PO (09:00)
[2018-04-07] MEDS: POTASSIUM CHLORIDE (SR) 20 MEQ TAB PO (09:02)
[2018-04-07] MEDS: QUETIAPINE 25 MG TAB PO ×2 (09:02→20:22)
[2018-04-07] MEDS: BALSAM PERU/CASTOR OIL 60 GM TUBE TOP ×2 (14:38→20:32)
[2018-04-07] MEDS: MUPIROCIN 2% 22 GM OINT TOP ×3 (14:39→21:00)
[2018-04-07] MEDS: NEOMYC/POLYMYX/BACIT 30 GM OINT TOP ×3 (14:39→21:00)
[2018-04-07] MEDS: COLLAGENASE 5 GM (UD JAR) TOP (14:39)
[2018-04-07] MEDS: ATORVASTATIN 40 MG TAB PO (20:22)
[2018-04-07] MEDS: INSULIN GLARGINE [LANTus] (100 UNITS/ML) SYG SC (20:25)
[2018-04-07] MEDS: TAMSULOSIN (SR) 0.4 MG CAP PO (20:29)
[2018-04-07] MEDS: ACETAMINOPHEN 500 MG TAB PO (23:43)
[2018-04-08] MEDS: ACCUCHECK AT 2AM (Patients on SS coverage) XX (02:00)
[2018-04-08] MEDS: traMADol 50 MG TAB PO ×4 (02:20→20:20)
[2018-04-08] MEDS: Insulin NOVOLOG SS MODERATE Algorithm (SS with meals and bedtime) SC ×4 (07:51→20:26)
[2018-04-08] MEDS: ACETAMINOPHEN 500 MG TAB PO ×2 (07:58→17:26)
[2018-04-08] MEDS: DOCUSATE SODIUM 100 MG CAP PO ×2 (08:00→20:30)
[2018-04-08] MEDS: QUETIAPINE 25 MG TAB PO ×2 (08:00→20:21)
[2018-04-08] MEDS: BISACODYL 10 MG SUPP PR (08:00)
[2018-04-08] MEDS: POTASSIUM CHLORIDE (SR) 20 MEQ TAB PO (08:00)
[2018-04-08] MEDS: BICALUTAMIDE 50 MG TAB PO (08:02)
[2018-04-08] MEDS: COLLAGENASE 5 GM (UD JAR) TOP (08:06)
[2018-04-08] MEDS: NEOMYC/POLYMYX/BACIT 30 GM OINT TOP ×2 (08:07→20:31)
[2018-04-08] MEDS: MUPIROCIN 2% 22 GM OINT TOP ×2 (08:07→20:30)
[2018-04-08] MEDS: BALSAM PERU/CASTOR OIL 60 GM TUBE TOP ×2 (08:10→20:21)
[2018-04-08] MEDS: LISINOPRIL 20 MG TAB PO (12:04)
[2018-04-08] MEDS: GABAPENTIN 100 MG CAP PO ×2 (17:12→20:20)
[2018-04-08] MEDS: ATORVASTATIN 40 MG TAB PO (20:20)
[2018-04-08] MEDS: TAMSULOSIN (SR) 0.4 MG CAP PO (20:20)
[2018-04-08] MEDS: INSULIN GLARGINE [LANTus] (100 UNITS/ML) SYG SC (20:30)
[2018-04-08] MEDS: traZODone 50 MG TAB PO (20:30)
[2018-04-09] MEDS: ACCUCHECK AT 2AM (Patients on SS coverage) XX (02:00)
[2018-04-09] MEDS: traMADol 50 MG TAB PO ×5 (02:06→20:22)
[2018-04-09] MEDS: traZODone 50 MG TAB PO ×4 (07:57→20:21)
[2018-04-09] MEDS: Insulin NOVOLOG SS MODERATE Algorithm (SS with meals and bedtime) SC ×4 (08:03→20:29)
[2018-04-09] MEDS: BICALUTAMIDE 50 MG TAB PO (09:00)
[2018-04-09] MEDS ORDERED: BISACODYL 10 MG SUPP PR (09:30)
[2018-04-09] MEDS ORDERED: MAGNESIUM HYDROXIDE 30ML CUP PO (09:30)
[2018-04-09] MEDS ORDERED: SENNA TAB PO (09:30)
[2018-04-09] MEDS: BALSAM PERU/CASTOR OIL 60 GM TUBE TOP ×2 (09:58→20:31)
[2018-04-09] MEDS: NEOMYC/POLYMYX/BACIT 30 GM OINT TOP (09:59)
[2018-04-09] MEDS: COLLAGENASE 5 GM (UD JAR) TOP (09:59)
[2018-04-09] MEDS: MUPIROCIN 2% 22 GM OINT TOP (09:59)
[2018-04-09] MEDS: LISINOPRIL 20 MG TAB PO (10:00)
[2018-04-09] MEDS: POTASSIUM CHLORIDE (SR) 20 MEQ TAB PO (10:00)
[2018-04-09] MEDS: DOCUSATE SODIUM 100 MG CAP PO ×2 (10:00→20:29)
[2018-04-09] MEDS: QUETIAPINE 25 MG TAB PO ×2 (10:00→20:21)
[2018-04-09] MEDS: GABAPENTIN 100 MG CAP PO ×3 (10:00→20:21)
[2018-04-09] MEDS: ACETAMINOPHEN 500 MG TAB PO ×3 (10:01→17:15)
[2018-04-09] MEDS: TAMSULOSIN (SR) 0.4 MG CAP PO (20:21)
[2018-04-09] MEDS: ATORVASTATIN 40 MG TAB PO (20:21)
[2018-04-09] MEDS: INSULIN GLARGINE [LANTus] (100 UNITS/ML) SYG SC (20:29)
[2018-04-10] MEDS: ACCUCHECK AT 2AM (Patients on SS coverage) XX (02:04)
[2018-04-10] MEDS: Insulin NOVOLOG SS MODERATE Algorithm (SS with meals and bedtime) SC ×4 (07:35→20:35)
[2018-04-10] MEDS: traZODone 50 MG TAB PO ×4 (07:41→20:30)
[2018-04-10] MEDS: traMADol 50 MG TAB PO ×3 (07:42→19:24)
[2018-04-10] MEDS: BICALUTAMIDE 50 MG TAB PO (09:00)
[2018-04-10] MEDS: GABAPENTIN 100 MG CAP PO ×3 (09:02→20:26)
[2018-04-10] MEDS: ACETAMINOPHEN 500 MG TAB PO ×3 (09:02→20:29)
[2018-04-10] MEDS: DOCUSATE SODIUM 100 MG CAP PO ×2 (09:02→20:36)
[2018-04-10] MEDS: LISINOPRIL 20 MG TAB PO (09:02)
[2018-04-10] MEDS: QUETIAPINE 25 MG TAB PO ×2 (09:03→20:27)
[2018-04-10] MEDS: COLLAGENASE 5 GM (UD JAR) TOP (09:03)
[2018-04-10] MEDS: BALSAM PERU/CASTOR OIL 60 GM TUBE TOP ×2 (09:03→20:36)
[2018-04-10] MEDS: POTASSIUM CHLORIDE (SR) 20 MEQ TAB PO (09:03)
[2018-04-10] MEDS: LACTULOSE 30ML CUP PO (09:47)
[2018-04-10] MEDS: HYDROCODONE/APAP (5/325) TAB PO (11:30)
[2018-04-10] MEDS: TAMSULOSIN (SR) 0.4 MG CAP PO (20:26)
[2018-04-10] MEDS: ATORVASTATIN 40 MG TAB PO (20:27)
[2018-04-10] MEDS: SENNA TAB PO (20:36)
[2018-04-10] MEDS: INSULIN GLARGINE [LANTus] (100 UNITS/ML) SYG SC (20:36)
[2018-04-11] MEDS: ACCUCHECK AT 2AM (Patients on SS coverage) XX (02:15)
[2018-04-11] MEDS: Insulin NOVOLOG SS MODERATE Algorithm (SS with meals and bedtime) SC ×4 (07:35→20:38)
[2018-04-11] MEDS: traMADol 50 MG TAB PO ×4 (07:46→20:34)
[2018-04-11] MEDS: COLLAGENASE 5 GM (UD JAR) TOP (08:12)
[2018-04-11] MEDS: LISINOPRIL 20 MG TAB PO (08:13)
[2018-04-11] MEDS: DOCUSATE SODIUM 100 MG CAP PO ×2 (08:13→20:34)
[2018-04-11] MEDS: BALSAM PERU/CASTOR OIL 60 GM TUBE TOP ×2 (08:13→20:34)
[2018-04-11] MEDS: QUETIAPINE 25 MG TAB PO ×2 (08:13→20:34)
[2018-04-11] MEDS: POTASSIUM CHLORIDE (SR) 20 MEQ TAB PO (08:13)
[2018-04-11] MEDS: GABAPENTIN 100 MG CAP PO ×3 (08:13→20:34)
[2018-04-11] MEDS: BICALUTAMIDE 50 MG TAB PO (08:14)
[2018-04-11] MEDS: HYDROCODONE/APAP (5/325) TAB PO ×2 (09:20→22:36)
[2018-04-11] MEDS: traZODone 50 MG TAB PO ×2 (10:27→18:55)
[2018-04-11] MEDS: ACETAMINOPHEN 500 MG TAB PO (10:35)
[2018-04-11 12:14] LABS: ADD MAN DIFF? NO
[2018-04-11 12:18] LABS: BASOPHILS % 0.5 % (0.0-2.0); EOSINOPHILS # 0.2 10^3/ul (0.0-0.5); EOSINOPHILS % 2.5 % (0.0-7.0); HEMATOCRIT 30.3 % (42.0-52.0); HEMOGLOBIN 9.8 g/dl (14.0-18.0); LYMPHOCYTES # 0.8 10^3/ul (0.8-2.9); LYMPHOCYTES % 12.6 % (15.0-51.0); MEAN CORPUSCULAR HEMOGLOBIN 30.4 pg (29.0-33.0); MEAN CORPUSCULAR HGB CONC 32.3 g/dl (32.0-37.0); MEAN CORPUSCULAR VOLUME 94.1 fl (82.0-101.0); MEAN PLATELET VOLUME 9.4 fl (7.4-10.4); MONOCYTE # 0.6 10^3/ul (0.3-0.9); MONOCYTES % 10.1 % (0.0-11.0); NEUTROPHIL # 4.5 10^3/ul (1.6-7.5); PLATELET COUNT 171 10^3/UL (140-415); RED BLOOD COUNT 3.22 10^6/ul (4.70-6.10); RED CELL DISTRIBUTION WIDTH 13.5 % (11.5-14.5)
[2018-04-11 12:41] LABS: ANION GAP 13 (8-16); BLOOD UREA NITROGEN 36 mg/dl (7-20); CALCIUM 9.1 mg/dl (8.4-10.2); CARBON DIOXIDE 26 mmol/L (21-31); CHLORIDE 106 mmol/L (97-110); CREATININE 0.93 mg/dl (0.61-1.24); GLUCOSE 185 mg/dl (70-220); POTASSIUM 4.8 mmol/L (3.5-5.1); SODIUM 140 mmol/L (135-144)
[2018-04-11] MEDS: SENNA TAB PO (20:33)
[2018-04-11] MEDS: TAMSULOSIN (SR) 0.4 MG CAP PO (20:33)
[2018-04-11] MEDS: ATORVASTATIN 40 MG TAB PO (20:33)
[2018-04-11] MEDS: INSULIN GLARGINE [LANTus] (100 UNITS/ML) SYG SC (20:37)
[2018-04-11] MEDS: DIPHENHYDRAMINE 50 MG CAP PO (22:37)
[2018-04-12] MEDS: traMADol 50 MG TAB PO ×4 (00:39→20:28)
[2018-04-12] MEDS: ACCUCHECK AT 2AM (Patients on SS coverage) XX (02:00)
[2018-04-12] MEDS: Insulin NOVOLOG SS MODERATE Algorithm (SS with meals and bedtime) SC ×4 (07:35→20:30)
[2018-04-12] MEDS: CLOTRIMAZOLE 1% 30 GM CR TOP ×2 (08:49→20:35)
[2018-04-12] MEDS: AMMONIUM LACTATE 12% 225 GM LOT TOP (08:49)
[2018-04-12] MEDS: LISINOPRIL 20 MG TAB PO (08:50)
[2018-04-12] MEDS: DOCUSATE SODIUM 100 MG CAP PO ×2 (08:51→21:00)
[2018-04-12] MEDS: BICALUTAMIDE 50 MG TAB PO (08:51)
[2018-04-12] MEDS: QUETIAPINE 25 MG TAB PO ×2 (08:51→20:28)
[2018-04-12] MEDS: GABAPENTIN 100 MG CAP PO ×3 (08:51→20:27)
[2018-04-12] MEDS: POTASSIUM CHLORIDE (SR) 20 MEQ TAB PO (08:51)
[2018-04-12] MEDS: BALSAM PERU/CASTOR OIL 60 GM TUBE TOP ×3 (08:52→20:35)
[2018-04-12] MEDS: traZODone 50 MG TAB PO ×2 (11:44→18:07)
[2018-04-12] MEDS: ACETAMINOPHEN 500 MG TAB PO ×2 (11:44→18:07)
[2018-04-12] MEDS: PERMETHRIN 1% 59 ML TOP (15:17)
[2018-04-12] MEDS: DIPHENHYDRAMINE 50 MG CAP PO (19:33)
[2018-04-12] MEDS: TAMSULOSIN (SR) 0.4 MG CAP PO (20:27)
[2018-04-12] MEDS: ATORVASTATIN 40 MG TAB PO (20:27)
[2018-04-12] MEDS: INSULIN GLARGINE [LANTus] (100 UNITS/ML) SYG SC (20:31)
[2018-04-12] MEDS: SENNA TAB PO (21:00)
[2018-04-12] MEDS: HYDROCODONE/APAP (5/325) TAB PO (22:07)
[2018-04-13] MEDS: ACCUCHECK AT 2AM (Patients on SS coverage) XX (02:00)
[2018-04-13] MEDS: Insulin NOVOLOG SS MODERATE Algorithm (SS with meals and bedtime) SC ×4 (08:02→20:38)
[2018-04-13] MEDS: BICALUTAMIDE 50 MG TAB PO (08:03)
[2018-04-13] MEDS: HYDROCODONE/APAP (5/325) TAB PO (09:30)
[2018-04-13] MEDS: POTASSIUM CHLORIDE (SR) 20 MEQ TAB PO (09:31)
[2018-04-13] MEDS: DOCUSATE SODIUM 100 MG CAP PO ×2 (09:31→20:36)
[2018-04-13] MEDS: LISINOPRIL 20 MG TAB PO (09:31)
[2018-04-13] MEDS: GABAPENTIN 100 MG CAP PO ×3 (09:32→20:36)
[2018-04-13] MEDS: QUETIAPINE 25 MG TAB PO ×2 (09:32→20:36)
[2018-04-13] MEDS: CLOTRIMAZOLE 1% 30 GM CR TOP ×2 (09:37→20:44)
[2018-04-13] MEDS: BALSAM PERU/CASTOR OIL 60 GM TUBE TOP ×3 (09:37→20:38)
[2018-04-13] MEDS: AMMONIUM LACTATE 12% 225 GM LOT TOP (09:37)
[2018-04-13] MEDS: DIPHENHYDRAMINE 50 MG CAP PO ×2 (10:30→20:43)
[2018-04-13] MEDS: traMADol 50 MG TAB PO ×3 (12:31→20:37)
[2018-04-13] MEDS: ATORVASTATIN 40 MG TAB PO (20:36)
[2018-04-13] MEDS: TAMSULOSIN (SR) 0.4 MG CAP PO (20:36)
[2018-04-13] MEDS: SENNA TAB PO (20:37)
[2018-04-13] MEDS: INSULIN GLARGINE [LANTus] (100 UNITS/ML) SYG SC (20:52)
[2018-04-14] MEDS: traMADol 50 MG TAB PO ×5 (00:42→20:37)
[2018-04-14] MEDS: ACCUCHECK AT 2AM (Patients on SS coverage) XX (02:00)
[2018-04-14] MEDS: traZODone 50 MG TAB PO ×4 (03:09→19:45)
[2018-04-14] MEDS: DIPHENHYDRAMINE 50 MG CAP PO ×2 (03:09→19:45)
[2018-04-14] MEDS: Insulin NOVOLOG SS MODERATE Algorithm (SS with meals and bedtime) SC ×4 (07:48→20:45)
[2018-04-14] MEDS: LISINOPRIL 20 MG TAB PO (09:00)
[2018-04-14] MEDS: BICALUTAMIDE 50 MG TAB PO (09:00)
[2018-04-14] MEDS: QUETIAPINE 25 MG TAB PO ×2 (09:43→20:37)
[2018-04-14] MEDS: DOCUSATE SODIUM 100 MG CAP PO ×2 (09:43→20:37)
[2018-04-14] MEDS: GABAPENTIN 100 MG CAP PO ×3 (09:43→20:37)
[2018-04-14] MEDS: POTASSIUM CHLORIDE (SR) 20 MEQ TAB PO (09:43)
[2018-04-14] MEDS: ACETAMINOPHEN 500 MG TAB PO ×2 (09:43→17:42)
[2018-04-14] MEDS: BALSAM PERU/CASTOR OIL 60 GM TUBE TOP ×3 (09:46→20:40)
[2018-04-14] MEDS: AMMONIUM LACTATE 12% 225 GM LOT TOP (09:47)
[2018-04-14] MEDS: CLOTRIMAZOLE 1% 30 GM CR TOP ×2 (09:47→20:39)
[2018-04-14] MEDS: SENNA TAB PO (20:37)
[2018-04-14] MEDS: ATORVASTATIN 40 MG TAB PO (20:37)
[2018-04-14] MEDS: TAMSULOSIN (SR) 0.4 MG CAP PO (20:37)
[2018-04-14] MEDS: INSULIN GLARGINE [LANTus] (100 UNITS/ML) SYG SC (20:44)
[2018-04-15] MEDS: ACCUCHECK AT 2AM (Patients on SS coverage) XX (02:00)
[2018-04-15] MEDS: DIPHENHYDRAMINE 50 MG CAP PO ×3 (03:34→18:02)
[2018-04-15] MEDS: traMADol 50 MG TAB PO ×5 (03:34→21:22)
[2018-04-15] MEDS: GABAPENTIN 100 MG CAP PO ×3 (07:58→20:28)
[2018-04-15] MEDS: Insulin NOVOLOG SS MODERATE Algorithm (SS with meals and bedtime) SC ×4 (08:25→20:29)
[2018-04-15] MEDS: BICALUTAMIDE 50 MG TAB PO (08:30)
[2018-04-15] MEDS: BALSAM PERU/CASTOR OIL 60 GM TUBE TOP ×3 (08:45→20:32)
[2018-04-15] MEDS: LISINOPRIL 20 MG TAB PO (08:46)
[2018-04-15] MEDS: POTASSIUM CHLORIDE (SR) 20 MEQ TAB PO (08:47)
[2018-04-15] MEDS: QUETIAPINE 25 MG TAB PO ×2 (08:47→20:28)
[2018-04-15] MEDS: DOCUSATE SODIUM 100 MG CAP PO ×2 (08:47→20:28)
[2018-04-15] MEDS: CLOTRIMAZOLE 1% 30 GM CR TOP ×2 (08:52→20:31)
[2018-04-15] MEDS: AMMONIUM LACTATE 12% 225 GM LOT TOP (08:52)
[2018-04-15] MEDS: GUAIFENESIN/DM 5ML CUP PO ×2 (10:27→17:17)
[2018-04-15] MEDS: traZODone 50 MG TAB PO ×2 (13:53→20:28)
[2018-04-15] MEDS: ACETAMINOPHEN 500 MG TAB PO (14:46)
[2018-04-15] MEDS: ATORVASTATIN 40 MG TAB PO (20:25)
[2018-04-15] MEDS: SENNA TAB PO (20:28)
[2018-04-15] MEDS: TAMSULOSIN (SR) 0.4 MG CAP PO (20:28)
[2018-04-15] MEDS: INSULIN GLARGINE [LANTus] (100 UNITS/ML) SYG SC (20:30)
[2018-04-16] MEDS: DIPHENHYDRAMINE 50 MG CAP PO ×2 (01:30→19:46)
[2018-04-16] MEDS: GUAIFENESIN/DM 5ML CUP PO ×3 (01:30→21:39)
[2018-04-16] MEDS: traMADol 50 MG TAB PO ×5 (01:30→21:25)
[2018-04-16] MEDS: ACCUCHECK AT 2AM (Patients on SS coverage) XX (02:00)
[2018-04-16] MEDS: GABAPENTIN 100 MG CAP PO ×3 (08:41→21:24)
[2018-04-16] MEDS: DOCUSATE SODIUM 100 MG CAP PO ×2 (08:41→21:00)
[2018-04-16] MEDS: QUETIAPINE 25 MG TAB PO ×2 (08:41→21:25)
[2018-04-16] MEDS: LISINOPRIL 20 MG TAB PO (08:42)
[2018-04-16] MEDS: POTASSIUM CHLORIDE (SR) 20 MEQ TAB PO (08:43)
[2018-04-16] MEDS: Insulin NOVOLOG SS MODERATE Algorithm (SS with meals and bedtime) SC ×4 (08:46→21:48)
[2018-04-16] MEDS: BICALUTAMIDE 50 MG TAB PO (08:52)
[2018-04-16] MEDS: CLOTRIMAZOLE 1% 30 GM CR TOP ×2 (09:00→21:42)
[2018-04-16] MEDS: BALSAM PERU/CASTOR OIL 60 GM TUBE TOP ×3 (09:00→21:42)
[2018-04-16] MEDS: traZODone 50 MG TAB PO ×2 (09:48→19:46)
[2018-04-16] MEDS: AMMONIUM LACTATE 12% 225 GM LOT TOP (11:53)
[2018-04-16] MEDS: SENNA TAB PO (21:00)
[2018-04-16] MEDS: TAMSULOSIN (SR) 0.4 MG CAP PO (21:24)
[2018-04-16] MEDS: ATORVASTATIN 40 MG TAB PO (21:24)
[2018-04-16] MEDS: INSULIN GLARGINE [LANTus] (100 UNITS/ML) SYG SC (21:47)
[2018-04-17] MEDS: ACCUCHECK AT 2AM (Patients on SS coverage) XX (02:00)
[2018-04-17] MEDS: traMADol 50 MG TAB PO ×4 (06:43→21:27)
[2018-04-17] MEDS: Insulin NOVOLOG SS MODERATE Algorithm (SS with meals and bedtime) SC ×4 (07:35→21:01)
[2018-04-17] MEDS: BICALUTAMIDE 50 MG TAB PO (08:02)
[2018-04-17 08:35] LABS: ADD MAN DIFF? NO
[2018-04-17 08:40] LABS: BASOPHILS % 0.4 % (0.0-2.0); EOSINOPHILS # 0.4 10^3/ul (0.0-0.5); HEMATOCRIT 33.1 % (42.0-52.0); HEMOGLOBIN 10.6 g/dl (14.0-18.0); LYMPHOCYTES % 20.6 % (15.0-51.0); MEAN CORPUSCULAR HEMOGLOBIN 29.9 pg (29.0-33.0); MEAN CORPUSCULAR VOLUME 93.2 fl (82.0-101.0); MEAN PLATELET VOLUME 9.4 fl (7.4-10.4); MONOCYTE # 0.9 10^3/ul (0.3-0.9); MONOCYTES % 18.7 % (0.0-11.0); NEUTROPHIL # 2.5 10^3/ul (1.6-7.5); NEUTROPHILS % 51.7 % (39.0-77.0); PLATELET COUNT 191 10^3/UL (140-415); RED BLOOD COUNT 3.55 10^6/ul (4.70-6.10); RED CELL DISTRIBUTION WIDTH 14.1 % (11.5-14.5)
[2018-04-17 08:40] LABS: WHITE BLOOD COUNT 4.8 10^3/ul (4.8-10.8)
[2018-04-17] MEDS: GABAPENTIN 100 MG CAP PO ×3 (08:57→20:49)
[2018-04-17] MEDS: DOCUSATE SODIUM 100 MG CAP PO ×2 (08:57→21:00)
[2018-04-17] MEDS: LISINOPRIL 20 MG TAB PO (08:57)
[2018-04-17] MEDS: POTASSIUM CHLORIDE (SR) 20 MEQ TAB PO (08:57)
[2018-04-17] MEDS: traZODone 50 MG TAB PO ×2 (08:58→17:35)
[2018-04-17] MEDS: QUETIAPINE 25 MG TAB PO ×2 (08:58→20:49)
[2018-04-17] MEDS: AMMONIUM LACTATE 12% 225 GM LOT TOP (08:58)
[2018-04-17] MEDS: ACETAMINOPHEN 500 MG TAB PO ×2 (08:58→19:25)
[2018-04-17] MEDS: BALSAM PERU/CASTOR OIL 60 GM TUBE TOP ×3 (08:59→20:51)
[2018-04-17] MEDS: CLOTRIMAZOLE 1% 30 GM CR TOP ×2 (08:59→20:51)
[2018-04-17 09:11] LABS: ANION GAP 14 (8-16); BLOOD UREA NITROGEN 21 mg/dl (7-20); CALCIUM 9.3 mg/dl (8.4-10.2); CARBON DIOXIDE 26 mmol/L (21-31); CHLORIDE 106 mmol/L (97-110); CREATININE 0.83 mg/dl (0.61-1.24); GLUCOSE 127 mg/dl (70-220); MAGNESIUM 1.8 mg/dl (1.7-2.5); POTASSIUM 4.2 mmol/L (3.5-5.1); SODIUM 142 mmol/L (135-144)
[2018-04-17] MEDS: TAMSULOSIN (SR) 0.4 MG CAP PO (20:49)
[2018-04-17] MEDS: ATORVASTATIN 40 MG TAB PO (20:49)
[2018-04-17] MEDS: DIPHENHYDRAMINE 50 MG CAP PO (20:50)
[2018-04-17] MEDS: INSULIN GLARGINE [LANTus] (100 UNITS/ML) SYG SC (21:00)
[2018-04-17] MEDS: SENNA TAB PO (21:00)
[2018-04-17] MEDS: GUAIFENESIN/DM 5ML CUP PO (21:27)
[2018-04-18] MEDS: ACCUCHECK AT 2AM (Patients on SS coverage) XX (02:20)
[2018-04-18] MEDS: traMADol 50 MG TAB PO ×6 (02:20→22:32)
[2018-04-18] MEDS: Insulin NOVOLOG SS MODERATE Algorithm (SS with meals and bedtime) SC ×4 (08:00→20:45)
[2018-04-18] MEDS: ACETAMINOPHEN 500 MG TAB PO ×3 (08:59→18:06)
[2018-04-18] MEDS: traZODone 50 MG TAB PO ×4 (08:59→23:02)
[2018-04-18] MEDS: DOCUSATE SODIUM 100 MG CAP PO ×2 (08:59→21:00)
[2018-04-18] MEDS: LISINOPRIL 20 MG TAB PO (08:59)
[2018-04-18] MEDS: GABAPENTIN 100 MG CAP PO ×3 (08:59→20:37)
[2018-04-18] MEDS: BICALUTAMIDE 50 MG TAB PO (09:00)
[2018-04-18] MEDS: QUETIAPINE 25 MG TAB PO ×2 (09:00→20:38)
[2018-04-18] MEDS: AMMONIUM LACTATE 12% 225 GM LOT TOP (09:00)
[2018-04-18] MEDS: CLOTRIMAZOLE 1% 30 GM CR TOP ×2 (09:00→20:43)
[2018-04-18] MEDS: POTASSIUM CHLORIDE (SR) 20 MEQ TAB PO (09:00)
[2018-04-18] MEDS: BALSAM PERU/CASTOR OIL 60 GM TUBE TOP ×3 (09:01→20:43)
[2018-04-18] MEDS: DIPHENHYDRAMINE 50 MG CAP PO ×2 (09:06→20:37)
[2018-04-18] MEDS: ATORVASTATIN 40 MG TAB PO (20:37)
[2018-04-18] MEDS: TAMSULOSIN (SR) 0.4 MG CAP PO (20:38)
[2018-04-18] MEDS: INSULIN GLARGINE [LANTus] (100 UNITS/ML) SYG SC (20:45)
[2018-04-18] MEDS: SENNA TAB PO (21:00)
[2018-04-18] MEDS: GUAIFENESIN/DM 5ML CUP PO (22:32)
[2018-04-19] MEDS: ACCUCHECK AT 2AM (Patients on SS coverage) XX (02:00)
[2018-04-19] MEDS: traMADol 50 MG TAB PO ×5 (02:53→20:23)
[2018-04-19] MEDS: Insulin NOVOLOG SS MODERATE Algorithm (SS with meals and bedtime) SC ×4 (07:58→21:00)
[2018-04-19] MEDS: BICALUTAMIDE 50 MG TAB PO (09:00)
[2018-04-19] MEDS: GABAPENTIN 100 MG CAP PO ×3 (09:13→20:22)
[2018-04-19] MEDS: POTASSIUM CHLORIDE (SR) 20 MEQ TAB PO (09:13)
[2018-04-19] MEDS: QUETIAPINE 25 MG TAB PO ×2 (09:13→20:22)
[2018-04-19] MEDS: DOCUSATE SODIUM 100 MG CAP PO ×2 (09:13→20:26)
[2018-04-19] MEDS: LISINOPRIL 20 MG TAB PO (09:13)
[2018-04-19] MEDS: AMMONIUM LACTATE 12% 225 GM LOT TOP (09:14)
[2018-04-19] MEDS: CLOTRIMAZOLE 1% 30 GM CR TOP ×2 (09:14→20:25)
[2018-04-19] MEDS: BALSAM PERU/CASTOR OIL 60 GM TUBE TOP ×3 (09:14→20:25)
[2018-04-19] MEDS: DIPHENHYDRAMINE 50 MG CAP PO ×2 (09:51→18:09)
[2018-04-19] MEDS: ACETAMINOPHEN 500 MG TAB PO (10:50)
[2018-04-19] MEDS: traZODone 50 MG TAB PO ×2 (14:03→20:23)
[2018-04-19] MEDS: TAMSULOSIN (SR) 0.4 MG CAP PO (20:22)
[2018-04-19] MEDS: ATORVASTATIN 40 MG TAB PO (20:22)
[2018-04-19] MEDS: SENNA TAB PO (20:26)
[2018-04-19] MEDS: INSULIN GLARGINE [LANTus] (100 UNITS/ML) SYG SC (20:33)
[2018-04-20] MEDS: ACCUCHECK AT 2AM (Patients on SS coverage) XX (02:00)
[2018-04-20] MEDS: traMADol 50 MG TAB PO ×4 (07:13→20:36)
[2018-04-20] MEDS: REPAGLINIDE 1 MG TAB PO ×3 (07:39→17:18)
[2018-04-20] MEDS: Insulin NOVOLOG SS MODERATE Algorithm (SS with meals and bedtime) SC ×4 (07:41→20:36)
[2018-04-20] MEDS: INSULIN GLARGINE [LANTus] (100 UNITS/ML) SYG SC ×2 (07:42→20:34)
[2018-04-20] MEDS: POTASSIUM CHLORIDE (SR) 20 MEQ TAB PO (08:07)
[2018-04-20] MEDS: GABAPENTIN 100 MG CAP PO ×3 (08:07→20:35)
[2018-04-20] MEDS: LISINOPRIL 20 MG TAB PO (08:08)
[2018-04-20] MEDS: QUETIAPINE 25 MG TAB PO ×2 (08:08→20:35)
[2018-04-20] MEDS: BICALUTAMIDE 50 MG TAB PO (08:08)
[2018-04-20] MEDS: DOCUSATE SODIUM 100 MG CAP PO ×2 (08:08→20:36)
[2018-04-20] MEDS: CLOTRIMAZOLE 1% 30 GM CR TOP ×2 (08:09→20:43)
[2018-04-20] MEDS: AMMONIUM LACTATE 12% 225 GM LOT TOP (08:09)
[2018-04-20] MEDS: BALSAM PERU/CASTOR OIL 60 GM TUBE TOP ×3 (08:09→20:42)
[2018-04-20] MEDS: DIPHENHYDRAMINE 50 MG CAP PO (14:03)
[2018-04-20] MEDS: traZODone 50 MG TAB PO ×2 (15:49→20:35)
[2018-04-20] MEDS: ATORVASTATIN 40 MG TAB PO (20:35)
[2018-04-20] MEDS: TAMSULOSIN (SR) 0.4 MG CAP PO (20:35)
[2018-04-20] MEDS: SENNA TAB PO (20:36)
[2018-04-20] MEDS ORDERED: HYDROCORTISONE 1% 28 GM CR TOP (21:00)
[2018-04-20] MEDS: HYDROCORTISONE 1% 28 GM CR TOP (21:43)
[2018-04-21] MEDS: ACCUCHECK AT 2AM (Patients on SS coverage) XX (02:00)
[2018-04-21] MEDS: DIPHENHYDRAMINE 50 MG CAP PO ×2 (02:19→09:48)
[2018-04-21] MEDS: traMADol 50 MG TAB PO ×3 (02:19→11:30)
[2018-04-21] MEDS: Insulin NOVOLOG SS MODERATE Algorithm (SS with meals and bedtime) SC ×2 (07:35→11:52)
[2018-04-21] MEDS: REPAGLINIDE 1 MG TAB PO ×2 (07:55→11:49)
[2018-04-21] MEDS: INSULIN GLARGINE [LANTus] (100 UNITS/ML) SYG SC (08:00)
[2018-04-21] MEDS: BICALUTAMIDE 50 MG TAB PO (09:00)
[2018-04-21] MEDS: POTASSIUM CHLORIDE (SR) 20 MEQ TAB PO (09:19)
[2018-04-21] MEDS: traZODone 50 MG TAB PO (09:19)
[2018-04-21] MEDS: QUETIAPINE 25 MG TAB PO (09:19)
[2018-04-21] MEDS: HYDROCORTISONE 1% 28 GM CR TOP (09:20)
[2018-04-21] MEDS: ACETAMINOPHEN 500 MG TAB PO (09:20)
[2018-04-21] MEDS: LISINOPRIL 20 MG TAB PO (09:20)
[2018-04-21] MEDS: GABAPENTIN 100 MG CAP PO ×2 (09:20→12:44)
[2018-04-21] MEDS: DOCUSATE SODIUM 100 MG CAP PO (09:20)
[2018-04-21] MEDS: CLOTRIMAZOLE 1% 30 GM CR TOP (09:21)
[2018-04-21] MEDS: BALSAM PERU/CASTOR OIL 60 GM TUBE TOP ×2 (09:21)
[2018-04-21] MEDS: AMMONIUM LACTATE 12% 225 GM LOT TOP (09:22)
== END 2018-04-21 12:48 | disposition home health service (06) | DRG 559 ==
LOC: VRC 21:29
PROC: F07Z5ZZ Bed Mobility Treatment (ICD-10-PCS; principal; 2018-04-06)
PROC: F08Z2ZZ Grooming/Personal Hygiene Treatment (ICD-10-PCS; 2018-04-06)
PROC: F06Z6ZZ Communicative/Cognitive Integration Skills Treatment (ICD-10-PCS; 2018-04-06)
DX: Z47.89 Encounter for other orthopedic aftercare (principal); G92 Toxic encephalopathy; F05 Delirium due to known physiological condition; I13.0 Hypertensive heart and chronic kidney disease with heart failure and stage 1 through stage 4 chronic kidney disease, or unspecified chronic kidney disease; N17.9 Acute kidney failure, unspecified; G89.4 Chronic pain syndrome; R52 Pain, unspecified; E11.9 Type 2 diabetes mellitus without complications; E78.5 Hyperlipidemia, unspecified; N40.0 Benign prostatic hyperplasia without lower urinary tract symptoms; Z85.46 Personal history of malignant neoplasm of prostate; D64.9 Anemia, unspecified; F39 Unspecified mood [affective] disorder; F09 Unspecified mental disorder due to known physiological condition; Z95.2 Presence of prosthetic heart valve; I50.9 Heart failure, unspecified; N18.9 Chronic kidney disease, unspecified; Z99.2 Dependence on renal dialysis; K21.9 Gastro-esophageal reflux disease without esophagitis
CPT/HCPCS: 71045; 80048; 80053; 81003; 82962; 83735; 85025; 87081; 87086; 92507; 92526; 92610; 93922; 97110; 97112; 97116; 97163; 97167; 97530; 97535; 97542

== ENCOUNTER 2018-04-27 10:37 | Emergency (ER) | payer MEDICARE, OTHER ==
[2018-04-27] MEDS: OXYCODONE/ACETAMINOPHEN (10/325) TAB PO (11:02)
[2018-04-27] MEDS: KETOROLAC 30 MG INJ IM (11:03)
== END 2018-04-27 12:32 | disposition home or self-care (01) ==
LOC: E/R 10:37
DX: M54.5 Low back pain (principal); I10 Essential (primary) hypertension; E11.9 Type 2 diabetes mellitus without complications; Z79.4 Long term (current) use of insulin
CPT/HCPCS: 96372; 99284-25